=== PATIENT | male | born 1940 | race Two or more races ===

== ENCOUNTER 2016-10-20 22:11 | Inpatient (IN) | payer MEDICARE ==
[~2016-10-20] VITALS: Ht 167.6 cm; Wt 81.0 kg
[~2016-10-20 22:11] MED LIST: ASPI81TA2 PO; ASPI81TA44 PO; ATOR40TA PO; ATOR40TA59 PO; CHOL500016 PO; DOXY100T PO; LISI-334 PO; METO-269 PO; SULF1TAB24 PO
[2016-10-20] MEDS ORDERED: ASPIRIN CHEWABLE 81 MG TABLET. PO ONE (23:00)
[2016-10-20 23:09] LABS: BASO # 0.1 x10^3/uL (0.0-0.2); BASO % 1 % (0-3); EOS % 5 % (0-3); HEMATOCRIT 43.9 % (39.0-53.0); HEMOGLOBIN 14.3 g/dL (13.0-17.5); LYMPH # 0.9 x10^3/uL (1.0-4.8); LYMPH % 13 % (24-48); MEAN CORPUSCULAR HEMOGLOBIN 31 pg (25-35); MEAN CORPUSCULAR HGB CONC 33 g/dL (31-37); MEAN CORPUSCULAR VOLUME 96 fL (79-100); MONO % 7 % (0-9); NEUT % 75 % (31-73); PLATELET COUNT 126 x10^3/uL (140-400); RED CELL DISTRIBUTION WIDTH 14.4 % (11.5-14.5); WHITE BLOOD COUNT 6.8 x10^3/uL (4.0-11.0)
[2016-10-20 23:20] LABS: CALCIUM 9.8 mg/dL (8.5-10.1); CREATININE 1.2 mg/dL (0.7-1.3); GFR 58.9
--- NOTE | 2016-10-20 23:58 | PHYS DOC ---
Past Medical History Past Medical History: High Cholesterol, Hypertension, [place] Past Surgical History: Coronary Bypass Surgery Alcohol Use: None Drug Use: None Adult General Chief Complaint Chief Complaint: SHORTNESS OF BREATH HPI HPI Patient is a 75 year old male who presents with SOB. Patient reports he was walking to get dinner when he had acute onset of SOB. Appears to have exertional component. He denies any SOB while lying on the bed in the ED. No chest discomfort. He did not take anything for symptoms prior to arrival. He has not taken any aspirin today. No other acute complaints. Review of Systems Review of Systems Constitutional: Denies fever or chills Eyes: Denies change in visual acuity or eye pain HENT: Denies nasal congestion or sore throat Respiratory: Shortness of breath with exertion Cardiovascular: Denies chest pain GI: Denies abdominal pain, nausea, vomiting, bloody stools or diarrhea : Denies dysuria or hematuria Musculoskeletal: Denies back pain or joint pain Integument: Denies rash or skin lesions Neurologic: Denies headache, focal weakness or sensory changes Current Medications Current Medications Current Medications Medications (Trade) Dose Ordered Sig/Kael Start Time Stop Time Status Last Admin Dose Admin Aspirin (Children'S Aspirin) 324 mg 1X ONCE 10/20/16 23:00 10/20/16 23:01 DC 10/20/16 23:08 324 MG Allergies Allergies Allergies Coded Allergies Type Severity Reaction Last Updated Verified No Known Drug Allergies 05/24/14 No Physical Exam Physical Exam Constitutional: Well developed, well nourished, no acute distress, non-toxic appearance HENT: Normocephalic, atraumatic, bilateral external ears normal Eyes: EOMI, conjunctiva normal, no discharge Neck: Normal range of motion, no stridor Cardiovascular: Heart rate normal, regular rhythm, no murmur Lungs & Thorax: Bilateral breath sounds clear to auscultation; midline CABG scar c/d/i Abdomen: Bowel sounds normal, soft, non-distended, no TTP Skin: Warm, dry, no erythema, no rash Extremities: No obvious deformity, no edema Neurologic: Alert and oriented X 3, no gross deficits noted Current Patient Data Vital Signs Vital Signs Date Time Temp Pulse Resp B/P Pulse Ox O2 Delivery O2 Flow Rate FiO2 10/20/16 23:36 62 16 123/58 94 Room Air 10/20/16 22:19 98.0 98.0 Lab Values Laboratory Tests Test 10/20/16 23:05 White Blood Count 6.8x10^3/uL (4.0-11.0) Red Blood Count 4.60x10^6/uL (4.30-5.70) Hemoglobin 14.3g/dL (13.0-17.5) Hematocrit 43.9% (39.0-53.0) Mean Corpuscular Volume 96fL (79-100) Mean Corpuscular Hemoglobin 31pg (25-35) Mean Corpuscular Hemoglobin Concent 33g/dL (31-37) Red Cell Distribution Width 14.4% (11.5-14.5) Platelet Count 126x10^3/uL (140-400) L Neutrophils (%) (Auto) 75% (31-73) H Lymphocytes (%) (Auto) 13% (24-48) L Monocytes (%) (Auto) 7% (0-9) Eosinophils (%) (Auto) 5% (0-3) H Basophils (%) (Auto) 1% (0-3) Neutrophils # (Auto) 5.1x10^3uL (1.8-7.7) Lymphocytes # (Auto) 0.9x10^3/uL (1.0-4.8) L Monocytes # (Auto) 0.5x10^3/uL (0.0-1.1) Eosinophils # (Auto) 0.3x10^3/uL (0.0-0.7) Basophils # (Auto) 0.1x10^3/uL (0.0-0.2) Sodium Level 141mmol/L (136-145) Potassium Level 4.0mmol/L (3.5-5.1) Chloride Level 104mmol/L (98-107) Carbon Dioxide Level 28mmol/L (21-32) Anion Gap 9 (6-14) Blood Urea Nitrogen 17mg/dL (8-26) Creatinine 1.2mg/dL (0.7-1.3) Estimated GFR (Cockcroft-Gault) 58.9 Glucose Level 87mg/dL (70-99) Calcium Level 9.8mg/dL (8.5-10.1) Troponin I Quantitative < 0.017ng/mL (0.000-0.055) BD-Idn-P-Type Natriuretic Peptide 225pg/mL (0-449) Laboratory Tests 10/20/16 23:05 Laboratory Tests 10/20/16 23:05 EKG EKG EKG (my read): sinus rhythm, rate 72, LAD, IVCD, similar morphology to prior Radiology/Procedures Radiology/Procedures CXR (my read): No acute abnormality Course & Med Decision Making Course & Med Decision Making Pertinent Labs and Imaging studies reviewed. (See chart for details) Patient is 75-year-old male who presents with shortness of breath with exertion. Concern for anginal equivalent given cardiac history. Will obtain EKG , chest x-ray, labs to evaluate. Dose of aspirin ordered. Blood work unremarkable. EKG similar to prior. Chest x-ray without acute abnormality per my read. Discussed results with patient. Discussed with Dr. Herman, will admit under her care for further evaluation and treatment. Dragon Disclaimer Dragon Disclaimer This electronic medical record was generated, in whole or in part, using a voice recognition dictation system. Departure Departure Impression: Primary Impression: Dyspnea on exertion Disposition: ADMITTED INPATIENT Admitting Physician: Other Condition: STABLE Referrals: BEAR HERMAN MD (PCP) JAMES FREED MD Oct 20, 2016 23:58
[2016-10-21] MEDS ORDERED: ONDANSETRON PF 4 MG/2 ML VIAL. IV PRN (00:15)
[2016-10-21] MEDS ORDERED: MORPHINE SULFATE 2 MG/ML DISP.SYRIN. IV PRN (00:15)
[2016-10-21] MEDS ORDERED: ACETAMINOPHEN 325 MG TABLET. PO PRN (00:15)
[2016-10-21 03:10] VITALS: BP 120/57
[2016-10-21] MEDS ORDERED: PNEUMOCOCCAL VAX SCREEN BY RX. MC ONE (03:30)
[2016-10-21 07:08] VITALS: BP 109/64
--- NOTE | 2016-10-21 07:56 | RAD ---
EXAM: Chest, 2 views. HISTORY: Shortness of breath. COMPARISON: 04/06/2016. FINDINGS: Frontal and lateral views of the chest are obtained. There is no infiltrate, effusion or pneumothorax. There is lingular atelectasis or scarring. There are findings consistent with CABG. There is mild interstitial prominence likely due to slightly decreased lung volumes. IMPRESSION: No acute pulmonary finding.
[2016-10-21] MEDS ORDERED: PNEUMOC CONJ VACC 23-VALENT 0.5 ML VIAL. VAX IM ONE (09:00)
[2016-10-21 09:13] LABS: BILIRUBIN,URINE NEGATIVE (NEG); GLUCOSE,URINE NEGATIVE (NEG); NITRITE,URINE NEGATIVE (NEG); PROTEIN,URINE NEGATIVE (NEG-TRACE)
--- NOTE | 2016-10-21 09:15 | EKG ---
[facility] [address] [place] [address] Test Date: 2016-10-20 Test Time: 23:05:35 Pat Name: ALFIE NIX Department: Room: 1 Gender: M [employer]ist [employer]in Keeper: : 1940 Requested By: JAMES FREED Order Number: [id number] Reading MD: Nora Sweeney Measurements Intervals [place] Rate: 72 P: -33 IL: 172 QRS: -43 QRSD: 132 T: 38 QT: 376 QTc: 413 Interpretive Statements SINUS RHYTHM RIGHT BUNDLE BRANCH BLOCK LEFT ANTERIOR FASCICULAR BLOCK BIFASCICULAR BLOCK RVH WITH REPOLARIZATION ABNORMALITY ABNORMAL ECG Electronically Signed On 10-22-2016 19:06:55 CDT by Nora Sweeney
[2016-10-21 09:31] LABS: BACTERIA,URINE FEW /HPF (0-FEW); RBC,URINE OCC /HPF (0-2); SQUAMOUS EPITHELIAL CELL,UR MOD /LPF; WBC,URINE OCC /HPF (0-4)
[2016-10-21 10:30] VITALS: BP 124/70
--- NOTE | 2016-10-21 13:17 | HP ---
ADMIT DATE: 10/21/2016 HISTORY OF PRESENT ILLNESS: This is a 75-year-old white male who was brought in by his nephew. I talked to the nephew. The nephew stated that he gets shakes at times. The nephew was concerned that the last time he had the shakes in his legs. He had urinary tract infection. This shakes was very bad last night. He has shaking in his arms. He also appeared to be short of breath. He thus brought him to the Emergency Room. This patient is mentally challenged. He lived with his ____ until a few years ago. He now lives with his nephew. He has had open heart surgery, though the nephew does not know any of the details. The patient was admitted here in 10/2015 after having had a syncopal episode. His echocardiogram was unremarkable. An MPI was negative. He was tachycardic, but beta blockers had not been resumed. Once the beta mason was resumed the tachycardia resolved. Since then I have seen him a few times in the office. He normally comes all smiling with a lady ____. I believe she is his niece. He is very pleasant. The family is also very particular about this help status. He is not able to tell me whether he has any urinary symptoms. I do not believe he knows his medications, but they have been listed as: 1. Aspirin 81 mg a day. 2. Atorvastatin 40 mg a day. 3. Metoprolol succinate 50 mg a day. He has seen a urologist. This is because of his frequent urinary tract infection. PHYSICAL EXAMINATION: GENERAL: He is lying flat. He seemed comfortable. He said he was doing all right. VITAL SIGNS: He was afebrile. The heart rate was 80 per minute and regular. The blood pressure is 120/70. LUNGS: Clear. HEART: The heart sounds are normal with no murmur or gallop. LABORATORY DATA: The oxygen saturation was 94% on room air. IMPRESSION: 1. Shaking and shortness of breath, probably due to anxiety, doubt that this is a cardiac or pulmonary cause. 2. Coronary artery disease with no evidence of chest pain and a negative MPI a year ago. 3. Hypertension, under control. 4. History that suggestive of prostatism and frequent urinary tract infection. BEAR HERMAN MD DR: Nicolas JOB#: [id number] / [id number]
[2016-10-21 14:50] VITALS: BP 125/76
[2016-10-21] MEDS: ASPIRIN CHEWABLE 81 MG TABLET. PO SCH (15:15)
[2016-10-21] MEDS: METOPROLOL SUCC 24HR ER 50 MG TAB.ER.24H. PO SCH (15:16)
[2016-10-21 19:15] VITALS: BP 114/71
[2016-10-21] MEDS ORDERED: ATORVASTATIN CALCIUM 20 MG TABLET PO SCH (21:00)
[2016-10-21 23:15] VITALS: BP 115/63
[2016-10-22 03:15] VITALS: BP 145/73
[2016-10-22] MEDS ORDERED: ACETAMINOPHEN 325 MG TABLET. PO PRN (04:00)
[2016-10-22 07:08] VITALS: BP 132/78
[2016-10-22] MEDS: METOPROLOL SUCC 24HR ER 50 MG TAB.ER.24H. PO SCH (09:04)
[2016-10-22] MEDS: ASPIRIN CHEWABLE 81 MG TABLET. PO SCH (09:05)
[2016-10-22 10:59] VITALS: BP 102/70
--- NOTE | 2016-10-22 15:06 | PDOC ---
PROGRESS NOTES Subjective Subjective Covering for Dr. Sweeney Patient is feeling fine and wants to go home. No new complaints. Objective Objective Vital Signs Date Time Temp Pulse Resp B/P Pulse Ox O2 Delivery O2 Flow Rate FiO2 10/22/16 10:59 97.9 74 18 102/70 94 Room Air 97.9 Intake and Output 10/22/16 06:59 Intake Total 620 ml Balance 620 ml Intake Oral 620 ml # Voids 10 Physical Exam Physical Exam No significant changes in cardiac exam. Assessment Assessment Patient appears to be stable. May go home to follow-up as an outpatient with Dr. Sweeney. Problems Medical Problems: (1) Dyspnea on exertion Status: Acute Comment Review of Relevant I have reviewed the following items dulce (where applicable) has been applied. Labs Laboratory Tests Test 10/20/16 23:05 10/21/16 06:05 10/21/16 09:00 10/21/16 11:45 White Blood Count 6.8x10^3/uL (4.0-11.0) Red Blood Count 4.60x10^6/uL (4.30-5.70) Hemoglobin 14.3g/dL (13.0-17.5) Hematocrit 43.9% (39.0-53.0) Mean Corpuscular Volume 96fL (79-100) Mean Corpuscular Hemoglobin 31pg (25-35) Mean Corpuscular Hemoglobin Concent 33g/dL (31-37) Red Cell Distribution Width 14.4% (11.5-14.5) Platelet Count 126x10^3/uL (140-400) Neutrophils (%) (Auto) 75% (31-73) Lymphocytes (%) (Auto) 13% (24-48) Monocytes (%) (Auto) 7% (0-9) Eosinophils (%) (Auto) 5% (0-3) Basophils (%) (Auto) 1% (0-3) Neutrophils # (Auto) 5.1x10^3uL (1.8-7.7) Lymphocytes # (Auto) 0.9x10^3/uL (1.0-4.8) Monocytes # (Auto) 0.5x10^3/uL (0.0-1.1) Eosinophils # (Auto) 0.3x10^3/uL (0.0-0.7) Basophils # (Auto) 0.1x10^3/uL (0.0-0.2) Sodium Level 141mmol/L (136-145) Potassium Level 4.0mmol/L (3.5-5.1) Chloride Level 104mmol/L (98-107) Carbon Dioxide Level 28mmol/L (21-32) Anion Gap 9 (6-14) Blood Urea Nitrogen 17mg/dL (8-26) Creatinine 1.2mg/dL (0.7-1.3) Estimated GFR (Cockcroft-Gault) 58.9 Glucose Level 87mg/dL (70-99) Calcium Level 9.8mg/dL (8.5-10.1) Troponin I Quantitative < 0.017ng/mL (0.000-0.055) < 0.017ng/mL (0.000-0.055) < 0.017ng/mL (0.000-0.055) CW-Cze-E-Type Natriuretic Peptide 225pg/mL (0-449) Urine Collection Type Unknown Urine Color Yellow Urine Clarity Clear Urine pH 6.0 Urine Specific [place] 1.025 Urine Protein Negativemg/dL (NEG-TRACE) Urine Glucose (UA) Negativemg/dL (NEG) Urine Ketones (Stick) Negativemg/dL (NEG) Urine Blood Negative (NEG) Urine Nitrite Negative (NEG) Urine Bilirubin Negative (NEG) Urine Urobilinogen Dipstick 1.0mg/dL (0.2 mg/dL) Urine Leukocyte Esterase Negative (NEG) Urine RBC Occ/HPF (0-2) Urine WBC Occ/HPF (0-4) Urine Squamous Epithelial Cells Mod/LPF Urine Bacteria Few/HPF (0-FEW) Urine Mucus Marked/LPF Medications Current Medications Aspirin (Children'S Aspirin) 324 mg 1X ONCE PO Last administered on 10/20/16t 23:08; Start 10/20/16 at 23:00; Stop 10/20/16 at 23:01; Status DC Ondansetron HCl (Zofran) 4 mg PRN Q8HRS PRN IV NAUSEA/VOMITING; Start 10/21/16 at 00:15; Stop 10/22/16 at 00:14; Status DC Morphine Sulfate 2 mg PRN Q2HR PRN IV SEVERE PAIN; Start 10/21/16 at 00:15; Stop 10/22/16 at 00:14; Status DC Acetaminophen (Tylenol) 650 mg PRN Q4HRS PRN PO FEVER; Start 10/21/16 at 00:15; Stop 10/22/16 at 00:14; Status DC Pneumococcal Polyvalent Vaccine (Do NOT chart on this placeholder) 1 each 1X ONCE MC ; Start 10/21/16 at 03:30; Stop 10/21/16 at 03:31; Status UNV Pneumococcal Polyvalent Vaccine (Pneumovax 23) 0.5 ml ONCE ONCE VAX IM Last administered on 10/21/16 17:56; Start 10/21/16 at 09:00; Stop 10/21/16 at 09:01; Status DC Aspirin (Children'S Aspirin) 81 mg DAILYWBKFT PO Last administered on 10/22/16 09:05; Start 10/21/16 at 14:00 Atorvastatin Calcium (Lipitor) 20 mg QHS PO Last administered on 10/21/16 21:41 ; Start 10/21/16 at 21:00 Metoprolol Succinate (Toprol Xl) 50 mg DAILY PO Last administered on 10/22/16 09:04; Start 10/21/16 at 14:00 Acetaminophen (Tylenol) 650 mg PRN Q6HRS PRN PO MILD PAIN Last administered on 10/22/16 04:18; Start 10/22/16 at 04:00 Active Scripts Active Bactrim Ds Tablet (Sulfamethoxazole/Trimethoprim) 1 Each Tablet 1 Tab PO BID Bactrim Ds Tablet (Sulfamethoxazole/Trimethoprim) 1 Each Tablet 1 Tab PO BID Vitamin D3 (Cholecalciferol (Vitamin D3)) 5,000 Unit Tablet 1 Tab PO DAILY Reported Toprol Xl (Metoprolol Succinate) 50 Mg Tab.er.24h 50 Mg PO DAILY Aspirin 81 Mg Tab.chew 81 Mg PO DAILY Lipitor (Atorvastatin Calcium) 40 Mg Tablet 40 Mg PO DAILY [unknown] Children's Aspirin (Aspirin) 81 Mg Tab.chew 81 Mg PO Toprol Xl (Metoprolol Succinate) 50 Mg Tab.er.24h 1 Tab PO DAILY Atorvastatin Calcium 40 Mg Tablet 1 Tab PO DAILY Vitals/I & O Vital Sign - Last 24 Hours 10/21/16 10/21/16 10/21/16 10/21/16 15:16 19:15 20:00 23:15 Temp 98.0 98.5 98.0 98.5 Pulse 80 71 68 Resp 18 14 B/P 125/76 114/71 115/63 Pulse Ox 94 97 O2 Delivery Room Air Room Air Room Air 10/22/16 10/22/16 10/22/16 10/22/16 03:15 07:08 08:00 09:04 Temp 98.3 98.2 98.3 98.2 Pulse 70 71 71 Resp 14 19 B/P 145/73 132/78 132/78 Pulse Ox 95 96 O2 Delivery Room Air Room Air Room Air 10/22/16 10:59 Temp 97.9 97.9 Pulse 74 Resp 18 B/P 102/70 Pulse Ox 94 O2 Delivery Room Air Intake and Output 10/21/16 10/21/16 10/22/16 14:59 22:59 06:59 Intake Total 300 ml 320 ml Balance 300 ml 320 ml KELVIN LAWRENCE MD Oct 22, 2016 15:06
[2016-10-22 15:35] VITALS: BP 146/72
[2016-10-22] MEDS ORDERED: ALPRAZOLAM 0.25 MG TABLET. PO STA (16:21)
== END 2016-10-22 16:45 | disposition home or self-care (01) | DRG 880 ==
LOC: ER 22:11 → 6 SOUTH 10-21 00:01
PROVIDERS: ADMIT Specialist; ATTEND Specialist
DX: F41.9 Anxiety disorder, unspecified (principal); E78.00 Pure hypercholesterolemia, unspecified; I10 Essential (primary) hypertension; I25.10 Atherosclerotic heart disease of native coronary artery without angina pectoris; I25.2 Old myocardial infarction; Z79.82 Long term (current) use of aspirin; Z79.899 Other long term (current) drug therapy; Z95.1 Presence of aortocoronary bypass graft
CPT/HCPCS: 36415; 71020; 80048; 81001; 83880; 84484; 85027; 87086; 90732; 93005; 94620; 97110; 97116; 99285-25

== ENCOUNTER 2017-10-06 04:03 | Emergency (ER) | payer MEDICARE ==
[2017-10-06 04:39] LABS: ADD MAN DIFF? NO
[2017-10-06 04:43] LABS: BASO % 1 % (0-3); EOS # 0.1 x10^3/uL (0.0-0.7); EOS % 1 % (0-3); HEMATOCRIT 42.9 % (39.0-53.0); HEMOGLOBIN 14.2 g/dL (13.0-17.5); LYMPH # 1.7 x10^3/uL (1.0-4.8); LYMPH % 19 % (24-48); MEAN CORPUSCULAR HEMOGLOBIN 32 pg (25-35); MEAN CORPUSCULAR HGB CONC 33 g/dL (31-37); MEAN CORPUSCULAR VOLUME 96 fL (79-100); MONO # 0.7 x10^3/uL (0.0-1.1); MONO % 8 % (0-9); NEUT # 6.2 x10^3uL (1.8-7.7); NEUT % 71 % (31-73); PLATELET COUNT 137 x10^3/uL (140-400); RED BLOOD COUNT 4.45 x10^6/uL (4.30-5.70); RED CELL DISTRIBUTION WIDTH 14.3 % (11.5-14.5); WHITE BLOOD COUNT 8.7 x10^3/uL (4.0-11.0)
[2017-10-06 04:45] LABS: BILIRUBIN,URINE NEGATIVE (NEG); CLARITY,URINE CLEAR; COLOR,URINE YELLOW; GLUCOSE,URINE NEGATIVE (NEG); NITRITE,URINE NEGATIVE (NEG); PROTEIN,URINE 100 mg/dL (NEG-TRACE)
[2017-10-06 04:51] LABS: ANION GAP 9 (6-14); BLOOD UREA NITROGEN 17 mg/dL (8-26); BUN/CREATININE RATIO 14 (6-20); CALCIUM 10.6 mg/dL (8.5-10.1); CARBON DIOXIDE 27 mmol/L (21-32); CHLORIDE 106 mmol/L (98-107); CREATININE 1.2 mg/dL (0.7-1.3); GFR 58.7; GLUCOSE 108 mg/dL (70-99); POTASSIUM 3.9 mmol/L (3.5-5.1); SODIUM 142 mmol/L (136-145)
[2017-10-06 04:55] LABS: BACTERIA,URINE MODERATE /HPF (0-FEW); RBC,URINE 0 /HPF (0-2); SQUAMOUS EPITHELIAL CELL,UR FEW /LPF
[2017-10-06 04:57] LABS: ALBUMIN 3.3 g/dL (3.4-5.0); ALBUMIN/GLOBULIN RATIO 0.9 (1.0-1.7); ALK PHOS 140 U/L (46-116); ALT (SGPT) 81 U/L (16-63); AST (SGOT) 111 U/L (15-37); LIPASE 58 U/L (73-393); TOTAL BILIRUBIN 0.4 mg/dL (0.2-1.0); TOTAL PROTEIN 6.9 g/dL (6.4-8.2)
== END 2017-10-06 06:55 | disposition home or self-care (01) ==
LOC: ER 04:03
DX: S09.90XA Unspecified injury of head, initial encounter (principal); N39.0 Urinary tract infection, site not specified; E78.00 Pure hypercholesterolemia, unspecified; I10 Essential (primary) hypertension; I25.2 Old myocardial infarction; Z95.1 Presence of aortocoronary bypass graft; W01.198A Fall on same level from slipping, tripping and stumbling with subsequent striking against other object, initial encounter; Y93.89 Activity, other specified; Y92.89 Other specified places as the place of occurrence of the external cause; Y99.8 Other external cause status
CPT/HCPCS: 36415; 70450; 72125; 80053; 81001; 83690; 85025; 87086; 96365; 99285-25; J0690

== ENCOUNTER 2017-10-19 20:50 | Inpatient (IN) | payer MEDICARE ==
[2017-10-19] MEDS ORDERED: MIDAZOLAM HCL/PF 5 MG/5 ML VIAL. (20:59)
[2017-10-19] MEDS: MIDAZOLAM HCL/PF 5 MG/5 ML VIAL. IV (21:00)
[2017-10-19 21:15] LABS: ADD MAN DIFF? NO
[2017-10-19 21:18] LABS: BASO % 1 % (0-3); EOS # 0.2 x10^3/uL (0.0-0.7); EOS % 3 % (0-3); HEMOGLOBIN 13.5 g/dL (13.0-17.5); LYMPH # 3.7 x10^3/uL (1.0-4.8); LYMPH % 46 % (24-48); MEAN CORPUSCULAR HEMOGLOBIN 32 pg (25-35); MEAN CORPUSCULAR HGB CONC 33 g/dL (31-37); MEAN CORPUSCULAR VOLUME 99 fL (79-100); MONO # 0.6 x10^3/uL (0.0-1.1); MONO % 8 % (0-9); NEUT # 3.5 x10^3uL (1.8-7.7); NEUT % 43 % (31-73); PLATELET COUNT 110 x10^3/uL (140-400); RED BLOOD COUNT 4.16 x10^6/uL (4.30-5.70); RED CELL DISTRIBUTION WIDTH 14.9 % (11.5-14.5); WHITE BLOOD COUNT 8.2 x10^3/uL (4.0-11.0)
[2017-10-19 21:31] LABS: ANION GAP 12 (6-14); BLOOD UREA NITROGEN 23 mg/dL (8-26); BUN/CREATININE RATIO 18 (6-20); CALCIUM 9.5 mg/dL (8.5-10.1); CARBON DIOXIDE 21 mmol/L (21-32); CHLORIDE 108 mmol/L (98-107); CREATININE 1.3 mg/dL (0.7-1.3); GFR 53.5; GLUCOSE 181 mg/dL (70-99); POTASSIUM 4.2 mmol/L (3.5-5.1); SODIUM 141 mmol/L (136-145)
[2017-10-19 21:36] LABS: ALBUMIN 3.1 g/dL (3.4-5.0); ALK PHOS 152 U/L (46-116); ALT (SGPT) 107 U/L (16-63); AST (SGOT) 138 U/L (15-37); LIPASE 71 U/L (73-393); TOTAL BILIRUBIN 0.4 mg/dL (0.2-1.0); TOTAL PROTEIN 6.3 g/dL (6.4-8.2)
[2017-10-19 21:38] LABS: TROPONINI < 0.017 ng/mL (0.000-0.055)
[2017-10-19 21:41] LABS: NT-PRO BNP 394 pg/mL (0-449)
[2017-10-19 21:57] LABS: MAGNESIUM 2.1 mg/dL (1.8-2.4)
[2017-10-19 22:12] LABS: PARTIAL THROMBOPLASTIN TIME 31 SEC (24-38); PROTHROMBIN TIME PATIENT 13.1 SEC (11.7-14.0)
[2017-10-19] MEDS ORDERED: ACETAMINOPHEN 325 MG TABLET. PO (23:15)
[2017-10-19] MEDS ORDERED: fentaNYL PF VIAL 100 MCG/2 ML VIAL IV (23:15)
[2017-10-19] MEDS ORDERED: ONDANSETRON PF 4 MG/2 ML VIAL. IV (23:15)
[2017-10-20 03:03] LABS: TROPONINI < 0.017 ng/mL (0.000-0.055)
[2017-10-20 08:34] LABS: ADD MAN DIFF? NO
[2017-10-20 08:37] LABS: BASO % 0 % (0-3); EOS # 0.1 x10^3/uL (0.0-0.7); EOS % 1 % (0-3); HEMATOCRIT 40.7 % (39.0-53.0); HEMOGLOBIN 13.3 g/dL (13.0-17.5); LYMPH # 1.3 x10^3/uL (1.0-4.8); LYMPH % 16 % (24-48); MEAN CORPUSCULAR HEMOGLOBIN 32 pg (25-35); MEAN CORPUSCULAR HGB CONC 33 g/dL (31-37); MEAN CORPUSCULAR VOLUME 97 fL (79-100); MONO # 0.6 x10^3/uL (0.0-1.1); MONO % 7 % (0-9); NEUT # 6.2 x10^3uL (1.8-7.7); NEUT % 76 % (31-73); PLATELET COUNT 106 x10^3/uL (140-400); RED CELL DISTRIBUTION WIDTH 14.6 % (11.5-14.5); WHITE BLOOD COUNT 8.2 x10^3/uL (4.0-11.0)
[2017-10-20 09:05] LABS: ALBUMIN 3.2 g/dL (3.4-5.0); ALBUMIN/GLOBULIN RATIO 1.1 (1.0-1.7); ALK PHOS 141 U/L (46-116); ALT (SGPT) 103 U/L (16-63); ANION GAP 6 (6-14); AST (SGOT) 69 U/L (15-37); BLOOD UREA NITROGEN 17 mg/dL (8-26); BUN/CREATININE RATIO 17 (6-20); CALCIUM 9.7 mg/dL (8.5-10.1); CARBON DIOXIDE 28 mmol/L (21-32); CHLORIDE 108 mmol/L (98-107); GFR 72.5; GLUCOSE 104 mg/dL (70-99); POTASSIUM 4.2 mmol/L (3.5-5.1); SODIUM 142 mmol/L (136-145); TOTAL BILIRUBIN 0.6 mg/dL (0.2-1.0); TOTAL PROTEIN 6.1 g/dL (6.4-8.2)
[2017-10-20 09:14] LABS: TROPONINI 0.026 ng/mL (0.000-0.055)
[2017-10-20 18:18] LABS: MRSA BY PCR Negative (Negative)
[2017-10-21] MEDS: LOSARTAN POTASSIUM 50 MG TABLET. PO (09:28)
[2017-10-21] MEDS: IV 1/2 NORMAL SALINE 1,000 ML IV ×2 (09:28→17:00)
[2017-10-21] MEDS ORDERED: ONDANSETRON PF 4 MG/2 ML VIAL. (14:40)
[2017-10-21] MEDS: ONDANSETRON PF 4 MG/2 ML VIAL. IV (14:51)
[2017-10-21] MEDS ORDERED: NOREPINEPHRIN PREMIX 250 ML IV (16:00)
[2017-10-21] MEDS: ATORVASTATIN CALCIUM 40 MG TABLET. PO (21:41)
[2017-10-22] MEDS: PARoxetine 20 MG TABLET PO (10:23)
[2017-10-22] MEDS: TAMSULOSIN 0.4 MG CAP.ER.24H. PO (10:23)
[2017-10-22] MEDS: LOSARTAN POTASSIUM 50 MG TABLET. PO (10:24)
[2017-10-22] MEDS ORDERED: MIDAZOLAM HCL/PF 5 MG/5 ML VIAL. (14:22)
[2017-10-22] MEDS ORDERED: fentaNYL PF VIAL 250 MCG/5 ML VIAL (14:22)
[2017-10-22] MEDS ORDERED: LIDOCAINE 2%/EPI 1:100,000 20 ML VIAL. (14:30)
[2017-10-22] MEDS: MIDAZOLAM HCL/PF 5 MG/5 ML VIAL. IV (14:37)
[2017-10-22] MEDS: fentaNYL PF VIAL 250 MCG/5 ML VIAL IV (14:37)
[2017-10-22] MEDS: LIDOCAINE 2%/EPI 1:100,000 20 ML VIAL. IJ (14:43)
[2017-10-22] MEDS: BACITRACIN 50,000 UNIT in IV NORMAL SALINE 250ML 250 ML IRR (15:00)
[2017-10-22] MEDS: IV NORMAL SALINE 500ML BAG 500 ML IV (15:30)
[2017-10-22] MEDS: ALBUMIN HUMAN 5% 500 ML IV (16:54)
[2017-10-22] MEDS ORDERED: HYDROcodone/APAP 5/325MG 1 TAB TABLET PO (19:30)
[2017-10-22] MEDS: ATORVASTATIN CALCIUM 40 MG TABLET. PO (21:37)
[2017-10-23] MEDS: PARoxetine 20 MG TABLET PO (09:06)
[2017-10-23] MEDS: TAMSULOSIN 0.4 MG CAP.ER.24H. PO (09:06)
[2017-10-23] MEDS: LOSARTAN POTASSIUM 50 MG TABLET. PO (09:06)
[2017-10-23] MEDS: ATORVASTATIN CALCIUM 40 MG TABLET. PO (19:49)
[2017-10-24] MEDS: TAMSULOSIN 0.4 MG CAP.ER.24H. PO (08:54)
[2017-10-24] MEDS: PARoxetine 20 MG TABLET PO (08:54)
[2017-10-24] MEDS: LOSARTAN POTASSIUM 50 MG TABLET. PO (09:00)
== END 2017-10-24 15:39 | disposition home health service (06) | DRG 242 ==
LOC: ER 20:50 → 1 WEST ICU 22:43 → 2 SOUTH 10-22 18:23
PROC: 0JH606Z Insertion of Pacemaker, Dual Chamber into Chest Subcutaneous Tissue and Fascia, Open Approach (ICD-10-PCS; principal; 2017-10-22)
PROC: 02H63JZ Insertion of Pacemaker Lead into Right Atrium, Percutaneous Approach (ICD-10-PCS; 2017-10-22)
PROC: 02HK3JZ Insertion of Pacemaker Lead into Right Ventricle, Percutaneous Approach (ICD-10-PCS; 2017-10-22)
DX: I44.2 Atrioventricular block, complete (principal); N17.0 Acute kidney failure with tubular necrosis; E78.5 Hyperlipidemia, unspecified; I10 Essential (primary) hypertension; M19.90 Unspecified osteoarthritis, unspecified site; I25.10 Atherosclerotic heart disease of native coronary artery without angina pectoris; I25.2 Old myocardial infarction; Z82.49 Family history of ischemic heart disease and other diseases of the circulatory system; Z95.1 Presence of aortocoronary bypass graft
CPT/HCPCS: 33217; 36415; 71045; 71046; 80053; 83690; 83735; 83880; 84484; 85025; 85610; 85730; 87641; 93005; 96365; 96366; 96375; 97110-GP; 97116-GP; 97162-GP; 97166-GO; 97530-GO; 97535-GO; 99152; 99153; 99291; 99291-25; C1785; C1898; J0690; J1265; J2250; J2405; J3010; J3490; J7040; J7050; P9045

== ENCOUNTER 2018-03-09 12:30 | Emergency (ER) | payer MEDICARE ==
[~2018-03-09] VITALS: Ht 167.6 cm; Wt 79.8 kg
[~2018-03-09 12:30] MED LIST changes: +AMOX1TAB61 PO; +ASPI-630 PO; -ASPI81TA2 PO; -ASPI81TA44 PO; +ASPI81TA59 PO; +CEPH-264 PO; +LACT1CAP19 PO; +LORA0.5T PO; +LOSA25TA4 PO; +NITR0.4T22 SL; +PARO20TA3 PO; +TAMS0.4C2 PO
[2018-03-09 14:00] LABS: BASO % 1 % (0-3); EOS # 0.2 x10^3/uL (0.0-0.7); EOS % 4 % (0-3); HEMATOCRIT 37.3 % (39.0-53.0); HEMOGLOBIN 12.5 g/dL (13.0-17.5); LYMPH # 1.8 x10^3/uL (1.0-4.8); LYMPH % 29 % (24-48); MEAN CORPUSCULAR HEMOGLOBIN 32 pg (25-35); MEAN CORPUSCULAR HGB CONC 33 g/dL (31-37); MEAN CORPUSCULAR VOLUME 97 fL (79-100); MONO # 0.6 x10^3/uL (0.0-1.1); MONO % 9 % (0-9); NEUT # 3.6 x10^3uL (1.8-7.7); NEUT % 58 % (31-73); PLATELET COUNT 109 x10^3/uL (140-400); RED BLOOD COUNT 3.87 x10^6/uL (4.30-5.70); RED CELL DISTRIBUTION WIDTH 15.8 % (11.5-14.5); WHITE BLOOD COUNT 6.2 x10^3/uL (4.0-11.0)
[2018-03-09 14:05] LABS: CALCIUM 9.5 mg/dL (8.5-10.1); CREATININE 1.2 mg/dL (0.7-1.3); GFR 58.6; POTASSIUM 4.1 mmol/L (3.5-5.1)
[2018-03-09 14:11] LABS: ALBUMIN 3.1 g/dL (3.4-5.0); DIRECT BILIRUBIN 0.1 mg/dL (0.0-0.2); TOTAL BILIRUBIN 0.5 mg/dL (0.2-1.0); TOTAL PROTEIN 6.1 g/dL (6.4-8.2)
[2018-03-09] MEDS ORDERED: CONTRAST GIVEN. MC PRN (14:15)
[2018-03-09] MEDS ORDERED: IOHEXOL 300 MG/ML 100ML VIAL. IV ONE (14:30)
--- NOTE | 2018-03-09 14:55 | PHYS DOC ---
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 Past Surgical History: Coronary Bypass Surgery, Pacemaker Alcohol Use: None Drug Use: None Adult General Chief Complaint Chief Complaint: ABDOMINAL PAIN HPI HPI Patient is a 77 year old male who presents with abdominal pain. The patient was at baseline health until yesterday morning. He describes that he had gradual onset of pain over the middle and left lower quadrant of his abdomen. The pain is been remittent since that time. He describes it to be a pressure or squeezing sensation. He has not had any fever, chills, nausea, vomiting. He has been having normal bowel movements. He denies any prior history of similar pain. He has never had surgery on his abdomen in the past. Review of Systems Review of Systems Constitutional: Denies fever or chills Eyes: Denies change in visual acuity HENT: Denies nasal congestion Respiratory: Denies cough Cardiovascular: No additional information not addressed in HPI GI: Denies abdominal pain, nausea, vomiting, bloody stools : Denies dysuria or hematuria Musculoskeletal: Denies back pain or joint pain Integument: Denies rash or skin lesions Neurologic: Denies headache All other systems were reviewed and found to be within normal limits, except as documented in this note. Current Medications Current Medications Current Medications Medications (Trade) Dose Ordered Sig/Kael Start Time Stop Time Status Last Admin Dose Admin Info (CONTRAST GIVEN -- Rx MONITORING) 1 each PRN DAILY PRN 03/09/18 14:15 03/11/18 14:14 Iohexol (Omnipaque 300 Mg/ml) 75 ml 1X ONCE 03/09/18 14:30 03/09/18 14:31 DC 03/09/18 14:30 75 ML Morphine Sulfate (Morphine Sulfate) 4 mg 1X ONCE 03/09/18 16:00 03/09/18 16:01 DC 03/09/18 15:44 4 MG Allergies Allergies Allergies Coded Allergies Type Severity Reaction Last Updated Verified No Known Drug Allergies 05/24/14 No Physical Exam Physical Exam Constitutional: Well developed, well nourished, no acute distress HENT: Normocephalic, atraumatic, bilateral external ears normal, oropharynx moist Eyes: PERRLA, EOMI, conjunctiva normal Neck: Normal range of motion, no tenderness Cardiovascular:Heart rate regular rhythm, no murmur Lungs & Thorax: Bilateral breath sounds clear to auscultation Abdomen: Bowel sounds normal, soft, mildly TTP over LLQ but no guarding or rebound Skin: Warm, dry, no erythema, no rash. Extremities: No tenderness, no edema Neurologic: Alert and oriented X 3 Psychologic: Affect normal Current Patient Data Vital Signs Vital Signs Date Time Temp Pulse Resp B/P (MAP) Pulse Ox O2 Delivery O2 Flow Rate FiO2 03/09/18 15:44 Room Air 03/09/18 15:30 60 20 165/81 (109) 96 03/09/18 12:55 97.7 97.7 Lab Values Laboratory Tests Test 03/09/18 13:25 03/09/18 15:00 White Blood Count 6.2 x10^3/uL (4.0-11.0) Red Blood Count 3.87 x10^6/uL (4.30-5.70) L Hemoglobin 12.5 g/dL (13.0-17.5) L Hematocrit 37.3 % (39.0-53.0) L Mean Corpuscular Volume 97 fL (79-100) Mean Corpuscular Hemoglobin 32 pg (25-35) Mean Corpuscular Hemoglobin Concent 33 g/dL (31-37) Red Cell Distribution Width 15.8 % (11.5-14.5) H Platelet Count 109 x10^3/uL (140-400) L Neutrophils (%) (Auto) 58 % (31-73) Lymphocytes (%) (Auto) 29 % (24-48) Monocytes (%) (Auto) 9 % (0-9) Eosinophils (%) (Auto) 4 % (0-3) H Basophils (%) (Auto) 1 % (0-3) Neutrophils # (Auto) 3.6 x10^3uL (1.8-7.7) Lymphocytes # (Auto) 1.8 x10^3/uL (1.0-4.8) Monocytes # (Auto) 0.6 x10^3/uL (0.0-1.1) Eosinophils # (Auto) 0.2 x10^3/uL (0.0-0.7) Basophils # (Auto) 0.0 x10^3/uL (0.0-0.2) Sodium Level 141 mmol/L (136-145) Potassium Level 4.1 mmol/L (3.5-5.1) Chloride Level 108 mmol/L (98-107) H Carbon Dioxide Level 29 mmol/L (21-32) Anion Gap 4 (6-14) L Blood Urea Nitrogen 13 mg/dL (8-26) Creatinine 1.2 mg/dL (0.7-1.3) Estimated GFR (Cockcroft-Gault) 58.6 Glucose Level 102 mg/dL (70-99) H Calcium Level 9.5 mg/dL (8.5-10.1) Total Bilirubin 0.5 mg/dL (0.2-1.0) Direct Bilirubin 0.1 mg/dL (0.0-0.2) Aspartate Amino Transferase (AST) 15 U/L (15-37) Alanine Aminotransferase (ALT) 18 U/L (16-63) Alkaline Phosphatase 131 U/L (46-116) H Troponin I Quantitative < 0.017 ng/mL (0.000-0.055) Total Protein 6.1 g/dL (6.4-8.2) L Albumin 3.1 g/dL (3.4-5.0) L Lipase 57 U/L (73-393) L Urine Collection Type Unknown Urine Color Yellow Urine Clarity Clear Urine pH 6.0 Urine Specific [place] 1.010 Urine Protein Negative mg/dL (NEG-TRACE) Urine Glucose (UA) Negative mg/dL (NEG) Urine Ketones (Stick) Negative mg/dL (NEG) Urine Blood Negative (NEG) Urine Nitrite Negative (NEG) Urine Bilirubin Negative (NEG) Urine Urobilinogen Dipstick 0.2 mg/dL (0.2 mg/dL) Urine Leukocyte Esterase Negative (NEG) Urine RBC 0 /HPF (0-2) Urine WBC 0 /HPF (0-4) Urine Squamous Epithelial Cells Few /LPF Urine Bacteria 0 /HPF (0-FEW) Laboratory Tests 03/09/18 13:25 Laboratory Tests 03/09/18 13:25 EKG EKG [] Radiology/Procedures Radiology/Procedures Ct abd pelvis: diverticulosis without diverticulitis. no additional acute findings. Course & Med Decision Making Course & Med Decision Making Pertinent Labs and Imaging studies reviewed. (See chart for details) Patient is seen and examined in the emergency department. His examination is overall benign. He does have very mild subjective tenderness to palpate on the abdominal exam. Plan is to do standard abdominal pain workup to rule out colitis or diverticulitis. 16:05: All results are reviewed and discussed with the patient. There were no acute findings on his workup today to explain his pain symptoms. His abdominal exam continues to be benign. Plan is for discharge home. Patient is advised to return to the ER immediately if his symptoms worsen or if he develops new symptoms. Otherwise he is encouraged to follow-up with his primary care doctor. Dragon Disclaimer Dragon Disclaimer This electronic medical record was generated, in whole or in part, using a voice recognition dictation system. Departure Departure Referrals: BEAR HERMAN MD (PCP) KIMBERLI JOHNSON DO Mar 09, 2018 14:55
[2018-03-09 15:12] LABS: BILIRUBIN,URINE NEGATIVE (NEG); CLARITY,URINE CLEAR; COLOR,URINE YELLOW; NITRITE,URINE NEGATIVE (NEG); PROTEIN,URINE NEGATIVE (NEG-TRACE); UROBILINOGEN,URINE 0.2 mg/dL (0.2 mg/dL)
[2018-03-09 15:19] LABS: BACTERIA,URINE 0 /HPF (0-FEW); RBC,URINE 0 /HPF (0-2); SQUAMOUS EPITHELIAL CELL,UR FEW /LPF; WBC,URINE 0 /HPF (0-4)
--- NOTE | 2018-03-09 15:27 | RAD ---
CT study of the abdomen and pelvis with contrast Clinical indications: Lower abdominal pain. TECHNIQUE: After IV infusion of 75 cc of Omnipaque 300, helical CT scanning of the abdomen and pelvis was performed. PQRS compliance Statement One or more of the following individualized dose reduction techniques were utilized for this study: 1. Automated exposure control 2. Adjustment of the mA and/or kV according to patient size 3. Use of iterative reconstruction technique COMPARISON: November 07, 2015. FINDINGS: The liver and spleen are unremarkable. Fatty atrophy of the pancreas is seen. Gallbladder is normal. No extra hepatic biliary ductal dilatation is seen. No adrenal mass is evident. Both kidneys are normal without hydronephrosis or hydroureter. Urinary bladder wall is smooth. No focal aneurysmal dilatation of the abdominal aorta is seen. No enlarged abdominal or pelvic lymphadenopathy is seen. The appendix is normal. No obstructive bowel pattern is evident. Colonic diverticulosis is seen without diverticulitis. A small hiatal hernia is evident. No free air or free fluid or mesenteric edema is seen. Small right-sided pleural effusion is seen. Mild right lung base atelectasis present. IMPRESSION: Colonic diverticulosis without diverticulitis. Small right pleural effusion. Electronically signed by: Contreras Peralta MD (03/09/2018 3:23 PM) [facility] [place]
[2018-03-09 15:30] VITALS: BP 165/81
[2018-03-09] MEDS ORDERED: MORPHINE SULFATE 4 MG/ML VIAL. IV ONE (16:00)
== END 2018-03-09 16:21 | disposition home or self-care (01) ==
LOC: ER 12:30
DX: K57.90 Diverticulosis of intestine, part unspecified, without perforation or abscess without bleeding (principal); E78.00 Pure hypercholesterolemia, unspecified; I10 Essential (primary) hypertension; I25.2 Old myocardial infarction; Z87.440 Personal history of urinary (tract) infections; Z95.0 Presence of cardiac pacemaker; Z95.5 Presence of coronary angioplasty implant and graft
CPT/HCPCS: 36415; 74177; 80048; 80076; 81001; 83690; 84484; 85025; 96374; 99285; J2270; Q9967

== ENCOUNTER 2018-06-08 20:04 | Emergency (ER) | payer MEDICARE ==
[~2018-06-08] VITALS: Ht 162.6 cm; Wt 79.8 kg
[~2018-06-08 20:04] MED LIST changes: -LOSA25TA4 PO; +LOSA25TA5 PO
--- NOTE | 2018-06-08 20:40 | PHYS DOC ---
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 Past Surgical History: Coronary Bypass Surgery, Pacemaker Past Surgical History CABG (1970s) Alcohol Use: None Drug Use: None Adult General Chief Complaint Chief Complaint: Dizziness HPI HPI This is a 77-year-old male presenting to the ED via EMS complaining of dizziness that occurs when standing from a seated position. Patient ascribes the dizziness as a spinning sensation, patient does not have any symptoms when seated or laying down. Denies syncope, recent falls, chest pain, shortness of breath, headache. Patient also states he experienced dysuria yesterday which has since resolved. Review of Systems Review of Systems Constitutional: Denies fever or chills [] Eyes: Denies change in visual acuity, redness, or eye pain [] HENT: Denies nasal congestion or sore throat [] Respiratory: Denies cough or shortness of breath [] Cardiovascular: Denies chest pain GI: Denies abdominal pain, nausea, vomiting, bloody stools or diarrhea [] : Reports dysuria yesterday; Denies hematuria or current dysuria Musculoskeletal: Denies back pain or joint pain [] Integument: Reports purpuric rash on lower extremities[] Neurologic: Reports postural dizziness, vertigo. Denies syncope, headache, focal weakness or sensory changes [] Complete systems were reviewed and found to be within normal limits, except as documented in this note. Current Medications Current Medications Current Medications Medications (Trade) Dose Ordered Sig/Kael Start Time Stop Time Status Last Admin Dose Admin Fluconazole (Diflucan) 200 mg 1X ONCE 06/08/18 21:45 06/08/18 21:46 DC 06/08/18 21:59 200 MG Sodium Chloride 1,000 ml @ 1,000 mls/hr 1X ONCE 06/08/18 20:45 06/08/18 21:44 DC 06/08/18 21:21 1,000 MLS/HR Allergies Allergies Allergies Coded Allergies Type Severity Reaction Last Updated Verified No Known Drug Allergies 05/24/14 No Physical Exam Physical Exam Constitutional: No acute distress, non-toxic appearance. [] HENT: Normocephalic, atraumatic. Dry mucous membranes [] Eyes: EOMI, conjunctiva normal, no discharge. [] Neck: Normal range of motion, no tenderness, supple, no stridor. [] Cardiovascular: Heart rate regular rhythm, no murmur. [] Lungs & Thorax: Bilateral breath sounds clear to auscultation [] Abdomen: Bowel sounds normal, soft, no tenderness, no masses, no pulsatile masses. [] Skin: Warm, dry, no erythema, scattered purpura over the distal lower extremities bilaterally.[] Back: No tenderness, no CVA tenderness. [] Extremities: No tenderness, no clubbing, ROM intact, no edema, scattered purpura over the distal lower extremities bilaterally. [] Neurologic: Alert and oriented X 3, cranial nerves II through XII intact, normal motor function, normal sensory function, no focal deficits noted. [] Psychologic: Affect normal, judgement normal, mood normal. [] Current Patient Data Vital Signs Vital Signs Date Time Temp Pulse Resp B/P (MAP) Pulse Ox O2 Delivery O2 Flow Rate FiO2 06/08/18 21:10 84 103/73 (83) 95 06/08/18 20:13 98.3 18 Room Air 98.3 Lab Values Laboratory Tests Test 06/08/18 20:35 06/08/18 21:06 Urine Collection Type Unknown Urine Color Tracee Urine Clarity Clear Urine pH 6.0 Urine Specific [place] 1.025 Urine Protein Negative mg/dL (NEG-TRACE) Urine Glucose (UA) Negative mg/dL (NEG) Urine Ketones (Stick) Trace mg/dL (NEG) Urine Blood Negative (NEG) Urine Nitrite Negative (NEG) Urine Bilirubin Small (NEG) Urine Urobilinogen Dipstick 1.0 mg/dL (0.2 mg/dL) Urine Leukocyte Esterase Negative (NEG) Urine RBC 0 /HPF (0-2) Urine WBC 0 /HPF (0-4) Urine Squamous Epithelial Cells Many /LPF Urine Bacteria Moderate /HPF (0-FEW) Urine Mucus Mod /LPF Urine Yeast Present /HPF White Blood Count 6.1 x10^3/uL (4.0-11.0) Red Blood Count 4.12 x10^6/uL (4.30-5.70) L Hemoglobin 13.7 g/dL (13.0-17.5) Hematocrit 40.2 % (39.0-53.0) Mean Corpuscular Volume 98 fL (79-100) Mean Corpuscular Hemoglobin 33 pg (25-35) Mean Corpuscular Hemoglobin Concent 34 g/dL (31-37) Red Cell Distribution Width 14.6 % (11.5-14.5) H Platelet Count 115 x10^3/uL (140-400) L Neutrophils (%) (Auto) 47 % (31-73) Lymphocytes (%) (Auto) 38 % (24-48) Monocytes (%) (Auto) 12 % (0-9) H Eosinophils (%) (Auto) 3 % (0-3) Basophils (%) (Auto) 1 % (0-3) Neutrophils # (Auto) 2.9 x10^3uL (1.8-7.7) Lymphocytes # (Auto) 2.3 x10^3/uL (1.0-4.8) Monocytes # (Auto) 0.7 x10^3/uL (0.0-1.1) Eosinophils # (Auto) 0.2 x10^3/uL (0.0-0.7) Basophils # (Auto) 0.0 x10^3/uL (0.0-0.2) Sodium Level 142 mmol/L (136-145) Potassium Level 3.8 mmol/L (3.5-5.1) Chloride Level 105 mmol/L (98-107) Carbon Dioxide Level 30 mmol/L (21-32) Anion Gap 7 (6-14) Blood Urea Nitrogen 21 mg/dL (8-26) Creatinine 1.7 mg/dL (0.7-1.3) H Estimated GFR (Cockcroft-Gault) 39.2 BUN/Creatinine Ratio 12 (6-20) Glucose Level 93 mg/dL (70-99) Lactic Acid Level 1.4 mmol/L (0.4-2.0) Calcium Level 9.9 mg/dL (8.5-10.1) Total Bilirubin 0.8 mg/dL (0.2-1.0) Aspartate Amino Transferase (AST) 15 U/L (15-37) Alanine Aminotransferase (ALT) 17 U/L (16-63) Alkaline Phosphatase 121 U/L (46-116) H Creatine Kinase 54 U/L (39-308) Creatine Kinase MB (Mass) < 0.5 ng/mL (0.0-3.6) Creatine Kinase MB Relative Index % (0-4) Troponin I Quantitative < 0.017 ng/mL (0.000-0.055) Total Protein 6.7 g/dL (6.4-8.2) Albumin 3.4 g/dL (3.4-5.0) Albumin/Globulin Ratio 1.0 (1.0-1.7) Laboratory Tests 06/08/18 21:06 Laboratory Tests 06/08/18 21:06 EKG EKG @2108 Paced rhythm at 69bpm Radiology/Procedures Radiology/Procedures [] Course & Med Decision Making Course & Med Decision Making Pertinent Labs and Imaging studies reviewed. (See chart for details) This is a 77-year-old male who was brought to the ED via EMS because family member at home was concerned about patient's postural dizziness. Patient is otherwise asymptomatic, but had recent dysuria that has since resolved. Due to patient's age and prior cardiac history we will check basic labs, ECG and troponins. Dragon Disclaimer Dragon Disclaimer This electronic medical record was generated, in whole or in part, using a voice recognition dictation system. Departure Departure Impression: Primary Impression: Dizziness Additional Impressions: Candidiasis of urogenital site Dysuria Renal insufficiency Dehydration Disposition: HOME, SELF-CARE Condition: STABLE Referrals: BEAR HERMAN MD (PCP) Patient Instructions: Jud Infection, Adult, Dehydration, Elderly, Easy-to- Read, Dizziness, [id number] Scripts Fluconazole (DIFLUCAN) 150 Mg Tablet 1 TAB PO ONCE, #1 TAB 0 Refills Take on 06/14/18 Prov: LOLLY CASE DO 06/08/18 Problem Qualifiers LOLLY CASE DO Jun 08, 2018 20:40
[2018-06-08 20:44] LABS: BILIRUBIN,URINE SMALL (NEG); CLARITY,URINE CLEAR; COLOR,URINE AMBER; NITRITE,URINE NEGATIVE (NEG); PROTEIN,URINE NEGATIVE (NEG-TRACE)
[2018-06-08] MEDS ORDERED: IV NORMAL SALINE 1000ML BAG 1,000 ML IV ONE (20:45)
[2018-06-08 20:51] LABS: BACTERIA,URINE MODERATE /HPF (0-FEW); SQUAMOUS EPITHELIAL CELL,UR MANY /LPF
[2018-06-08 20:57] LABS: RBC,URINE 0 /HPF (0-2); WBC,URINE 0 /HPF (0-4); YEAST,URINE PRESENT /HPF
[2018-06-08 21:23] LABS: BASO % 1 % (0-3); EOS # 0.2 x10^3/uL (0.0-0.7); EOS % 3 % (0-3); HEMATOCRIT 40.2 % (39.0-53.0); HEMOGLOBIN 13.7 g/dL (13.0-17.5); LYMPH # 2.3 x10^3/uL (1.0-4.8); LYMPH % 38 % (24-48); MEAN CORPUSCULAR HEMOGLOBIN 33 pg (25-35); MEAN CORPUSCULAR HGB CONC 34 g/dL (31-37); MEAN CORPUSCULAR VOLUME 98 fL (79-100); MONO # 0.7 x10^3/uL (0.0-1.1); MONO % 12 % (0-9); NEUT # 2.9 x10^3uL (1.8-7.7); NEUT % 47 % (31-73); PLATELET COUNT 115 x10^3/uL (140-400); RED BLOOD COUNT 4.12 x10^6/uL (4.30-5.70); RED CELL DISTRIBUTION WIDTH 14.6 % (11.5-14.5); WHITE BLOOD COUNT 6.1 x10^3/uL (4.0-11.0)
[2018-06-08 21:36] LABS: CALCIUM 9.9 mg/dL (8.5-10.1); CREATININE 1.7 mg/dL (0.7-1.3); GFR 39.2; POTASSIUM 3.8 mmol/L (3.5-5.1)
[2018-06-08 21:43] LABS: ALBUMIN 3.4 g/dL (3.4-5.0); TOTAL BILIRUBIN 0.8 mg/dL (0.2-1.0); TOTAL PROTEIN 6.7 g/dL (6.4-8.2)
[2018-06-08] MEDS ORDERED: FLUCONAZOLE 100 MG TABLET. PO ONE (21:45)
[2018-06-08 22:08] LABS: CREATINE KINASE 54 U/L (39-308)
[2018-06-08] MEDS ORDERED: FLUC150T PO (22:36)
[2018-06-08 22:40] VITALS: BP 132/58
--- NOTE | 2018-06-09 07:28 | EKG ---
[facility] [address] [place] [address] Test Date: 2018-06-08 Test Time: 21:06:49 Pat Name: ALFIE FRANK Department: Room: Gender: Male Operations Administrator: : 1940 Requested By: LOLLY CASE Order Number: [id number] Reading MD: Justyn Britton MD Measurements Intervals [place] Rate: 68 P: -21 [place]: 186 QRS: -60 QRSD: 170 T: -5 QT: 428 QTc: 460 Interpretive Statements V-APCED PVC'S Electronically Signed On 06-10-2018 14:26:44 CHEMICAL UNIT OPERATOR by Justyn Britton MD
== END 2018-06-08 22:45 | disposition home or self-care (01) ==
LOC: ER 20:04
DX: B37.49 Other urogenital candidiasis (principal); E86.0 Dehydration; N28.9 Disorder of kidney and ureter, unspecified; E78.00 Pure hypercholesterolemia, unspecified; I10 Essential (primary) hypertension; I25.2 Old myocardial infarction; Z87.440 Personal history of urinary (tract) infections; Z95.1 Presence of aortocoronary bypass graft; Z95.0 Presence of cardiac pacemaker; N40.0 Benign prostatic hyperplasia without lower urinary tract symptoms; Z86.79 Personal history of other diseases of the circulatory system
CPT/HCPCS: 36415; 80053; 81001; 82553; 83605; 84484; 85025; 87086; 93005; 96360; 99285; J7030

== ENCOUNTER 2018-07-28 22:39 | Emergency (ER) | payer MEDICARE ==
[~2018-07-28] VITALS: Ht 170.2 cm; Wt 79.8 kg
[~2018-07-28 22:39] MED LIST changes: +FLUC150T PO; -LOSA25TA5 PO; +LOSA25TA54 PO
--- NOTE | 2018-07-28 22:55 | PHYS DOC ---
Past Medical History Past Medical History: High Cholesterol, Hypertension, [place], UTI Additional Past Medical Histor: MR, heart block pacemaker placed one month ago for heart block, BPH. Past Surgical History: Coronary Bypass Surgery, Pacemaker Alcohol Use: None Drug Use: None Adult General Chief Complaint Chief Complaint: DIARRHEA HPI HPI Patient is a 77 year old male who presents with left lower quadrant abdominal pain this started 2-3 days ago and has been getting worse over time. Diarrhea started today. No blood in the stool. No travel. No recent antibiotic use. No nausea or vomiting. Movement makes the discomfort worse. Holding still makes it better. No significant relief with aspirin that he was given by family at home. [] Review of Systems Review of Systems Constitutional: Denies fever or chills [] Eyes: Denies change in visual acuity, redness, or eye pain [] HENT: Denies nasal congestion or sore throat [] Respiratory: Denies cough or shortness of breath [] Cardiovascular: No chest pain or palpitations[] GI: See history of present illness[] : Denies dysuria or hematuria [] Musculoskeletal: Denies back pain or joint pain [] Integument: Denies rash or skin lesions [] Neurologic: Denies headache, focal weakness or sensory changes [] Endocrine: Denies polyuria or polydipsia [] All other systems were reviewed and found to be within normal limits, except as documented in this note. Current Medications Current Medications Current Medications Medications (Trade) Dose Ordered Sig/Kael Start Time Stop Time Status Last Admin Dose Admin Ceftriaxone Sodium (Rocephin) 1 gm 1X ONCE 07/29/18 01:00 07/29/18 01:01 DC 07/29/18 00:35 1 GM Hyoscyamine (Anaspaz) 0.125 mg ONCE ONCE 07/28/18 23:15 07/28/18 23:16 DC 07/28/18 23:15 0.125 MG Info (CONTRAST GIVEN -- Rx MONITORING) 1 each PRN DAILY PRN 07/29/18 00:15 07/31/18 00:14 Iohexol (Omnipaque 300 Mg/ml) 60 ml 1X ONCE 07/29/18 00:30 07/29/18 00:31 DC 07/29/18 00:23 60 ML Ketorolac Tromethamine (Toradol 30mg Vial) 30 mg 1X ONCE 07/28/18 23:15 07/28/18 23:16 DC 07/28/18 23:16 30 MG Metoclopramide HCl (Reglan Vial) 10 mg 1X ONCE 07/28/18 23:15 07/28/18 23:16 DC 07/28/18 23:16 10 MG Sodium Chloride 500 ml @ 500 mls/hr 1X ONCE 07/29/18 01:00 07/29/18 01:59 07/29/18 00:35 500 MLS/HR Allergies Allergies Allergies Coded Allergies Type Severity Reaction Last Updated Verified No Known Drug Allergies 05/24/14 No Physical Exam Physical Exam Constitutional: Well developed, well nourished, no acute distress, non-toxic appearance. [] HENT: Normocephalic, atraumatic, bilateral external ears normal, oropharynx moist, no oral exudates, nose normal. [] Eyes: PERRLA, EOMI, conjunctiva normal, no discharge. [] Neck: Normal range of motion, no tenderness, supple, no stridor. [] Cardiovascular:Heart rate regular rhythm, no murmur [] Lungs & Thorax: Bilateral breath sounds clear to auscultation [] Abdomen: Bowel sounds normal, soft, tenderness in the left lower quadrant, no rebound, no guarding, no rigidity. Sits up without any difficulty, no masses, no pulsatile masses. [] Skin: Warm, dry, no erythema, no rash. [] Back: No tenderness, no CVA tenderness. [] Extremities: No tenderness, no cyanosis, no clubbing, ROM intact, no edema. [] Neurologic: Alert and oriented X 3, normal motor function, normal sensory function, no focal deficits noted. [] Psychologic: Affect normal, judgement normal, mood normal. [] Current Patient Data Vital Signs Vital Signs Date Time Temp Pulse Resp B/P (MAP) Pulse Ox O2 Delivery O2 Flow Rate FiO2 07/28/18 22:40 97.9 66 18 180/79 (112) 94 Room Air 97.9 Lab Values Laboratory Tests Test 07/28/18 22:50 07/28/18 23:19 07/28/18 23:53 White Blood Count 7.5 x10^3/uL (4.0-11.0) Red Blood Count 4.36 x10^6/uL (4.30-5.70) Hemoglobin 14.4 g/dL (13.0-17.5) Hematocrit 42.6 % (39.0-53.0) Mean Corpuscular Volume 98 fL (79-100) Mean Corpuscular Hemoglobin 33 pg (25-35) Mean Corpuscular Hemoglobin Concent 34 g/dL (31-37) Red Cell Distribution Width 15.1 % (11.5-14.5) H Platelet Count 114 x10^3/uL (140-400) L Neutrophils (%) (Auto) 57 % (31-73) Lymphocytes (%) (Auto) 32 % (24-48) Monocytes (%) (Auto) 9 % (0-9) Eosinophils (%) (Auto) 1 % (0-3) Basophils (%) (Auto) 1 % (0-3) Neutrophils # (Auto) 4.3 x10^3uL (1.8-7.7) Lymphocytes # (Auto) 2.4 x10^3/uL (1.0-4.8) Monocytes # (Auto) 0.7 x10^3/uL (0.0-1.1) Eosinophils # (Auto) 0.1 x10^3/uL (0.0-0.7) Basophils # (Auto) 0.0 x10^3/uL (0.0-0.2) Prothrombin Time 12.5 SEC (11.7-14.0) Prothrombin Time INR 1.0 (0.8-1.1) Sodium Level 144 mmol/L (136-145) Potassium Level 4.3 mmol/L (3.5-5.1) Chloride Level 110 mmol/L (98-107) H Carbon Dioxide Level 27 mmol/L (21-32) Anion Gap 7 (6-14) Blood Urea Nitrogen 23 mg/dL (8-26) Creatinine 1.2 mg/dL (0.7-1.3) Estimated GFR (Cockcroft-Gault) 58.6 BUN/Creatinine Ratio 19 (6-20) Glucose Level 124 mg/dL (70-99) H Calcium Level 9.9 mg/dL (8.5-10.1) Total Bilirubin 0.6 mg/dL (0.2-1.0) Aspartate Amino Transferase (AST) 14 U/L (15-37) L Alanine Aminotransferase (ALT) 20 U/L (16-63) Alkaline Phosphatase 113 U/L (46-116) Troponin I Quantitative < 0.017 ng/mL (0.000-0.055) Total Protein 6.7 g/dL (6.4-8.2) Albumin 3.3 g/dL (3.4-5.0) L Albumin/Globulin Ratio 1.0 (1.0-1.7) Lipase 54 U/L (73-393) L Urine Collection Type Unknown Urine Color Yellow Urine Clarity Clear Urine pH 6.5 Urine Specific [place] >=1.030 Urine Protein Negative mg/dL (NEG-TRACE) Urine Glucose (UA) Negative mg/dL (NEG) Urine Ketones (Stick) Negative mg/dL (NEG) Urine Blood Negative (NEG) Urine Nitrite Negative (NEG) Urine Bilirubin Small (NEG) Urine Urobilinogen Dipstick 2.0 mg/dL (0.2 mg/dL) Urine Leukocyte Esterase Small (NEG) Urine RBC Occ /HPF (0-2) Urine WBC 5-10 /HPF (0-4) Urine Squamous Epithelial Cells Few /LPF Urine Bacteria Moderate /HPF (0-FEW) Urine Mucus Mod /LPF Laboratory Tests 07/28/18 22:50 Laboratory Tests 07/28/18 23:19 EKG EKG EKG shows a sinus rhythm at 60 bpm, axis of -124, QTC of [address] elevations , and compared with EKG of 06/08/2018, patient was noted to be paced at that time, no evidence of pacemaker spikes on today's EKG[] Radiology/Procedures Radiology/Procedures CT abdomen and pelvis with contrast. HISTORY: Left lower quadrant pain CT scan of the abdomen and pelvis was done using 60 mL Omnipaque 300 contrast. There is a calcified granuloma in the right lower lobe. There is mild atelectasis in the lung bases without other infiltrates. There is no effusion. There is a moderate hiatus hernia. A liver lesion is not identified. There are no calcified gallstones. Spleen and adrenal glands are normal. Pancreas is normal. There is no mass or hydronephrosis in the kidneys. There is a left peripelvic renal cyst without change. There is no ureteral calculus. Bowel pattern is normal. Appendix is normal. There is diverticulosis of the colon. I do not see an acute diverticulitis. There is mild wall thickening in the sigmoid colon which is nonspecific. IMPRESSION: 1. Hiatus hernia. 2. No bowel obstruction. 3. Diverticulosis without acute diverticulitis 4. No bowel obstruction. 5. Mild bowel wall thickening of the sigmoid colon possibly diverticulosis, colonoscopy could be of benefit.[] Course & Med Decision Making Course & Med Decision Making Pertinent Labs and Imaging studies reviewed. (See chart for details) Medical decision making: There is no evidence of diverticulitis, obstruction, perforation, nor significant electrolytic abnormality. Patient is receiving IV antibiotics for urinary tract infection. Do not see any evidence of pyelonephritis. Will continue oral outpatient medication. There is no evidence of inadequate pain control. Patient had significant relief with the pain medicines administered. ED course: She arrived, was placed in bed, in tolerated exam well. Patient was transferred to and from [place] with any complications. Patient was given IV fluids as well as initial dose of IV antibiotics for the urinary tract infection. Patient was informed of the lab and imaging findings and all questions were answered. Patient was discharged in improved condition.[] Dragon Disclaimer Dragon Disclaimer This electronic medical record was generated, in whole or in part, using a voice recognition dictation system. Departure Departure Impression: Primary Impression: Urinary tract infection Additional Impression: Diarrhea Disposition: 01 HOME, SELF-CARE Condition: GOOD Referrals: BEAR HERMAN MD (PCP) Follow-up in 2 days Patient Instructions: Diarrhea, Diet for Diarrhea, Adult, Urinary Tract Infection Additional Instructions: Drink plenty of fluids. Follow-up with your primary care physician in 2 days. Return to the ER if worsening pain, fever, or any other concerns. Scripts Hyoscyamine Sulfate (LEVSIN) 0.125 Mg Tablet 0.125 MG PO QID, #30 TAB Prov: SOLANGE BECERRIL DO 07/29/18 Cephalexin (CEPHALEXIN) 500 Mg Tablet 1 TAB PO TID, #30 TAB Prov: SOLANGE BECERRIL DO 07/29/18 Problem Qualifiers Primary Impression: Urinary tract infection Urinary tract infection type: site unspecified Hematuria presence: without hematuria Qualified Codes: N39.0 - Urinary tract infection, site not specified Additional Impression: Diarrhea Diarrhea type: unspecified type Qualified Codes: R19.7 - Diarrhea, unspecified SOLANGE BECERRIL DO Jul 28, 2018 22:55
[2018-07-28 23:05] LABS: BASO % 1 % (0-3); EOS # 0.1 x10^3/uL (0.0-0.7); EOS % 1 % (0-3); HEMATOCRIT 42.6 % (39.0-53.0); HEMOGLOBIN 14.4 g/dL (13.0-17.5); LYMPH # 2.4 x10^3/uL (1.0-4.8); LYMPH % 32 % (24-48); MEAN CORPUSCULAR HEMOGLOBIN 33 pg (25-35); MEAN CORPUSCULAR HGB CONC 34 g/dL (31-37); MEAN CORPUSCULAR VOLUME 98 fL (79-100); MONO # 0.7 x10^3/uL (0.0-1.1); MONO % 9 % (0-9); NEUT # 4.3 x10^3uL (1.8-7.7); NEUT % 57 % (31-73); PLATELET COUNT 114 x10^3/uL (140-400); RED BLOOD COUNT 4.36 x10^6/uL (4.30-5.70); RED CELL DISTRIBUTION WIDTH 15.1 % (11.5-14.5); WHITE BLOOD COUNT 7.5 x10^3/uL (4.0-11.0)
[2018-07-28 23:15] LABS: PROTHROMBIN TIME PATIENT 12.5 SEC (11.7-14.0)
[2018-07-28] MEDS ORDERED: METOCLOPRAMIDE HCL 10 MG/2 ML VIAL. IV ONE (23:15)
[2018-07-28] MEDS ORDERED: HYOSCYAMINE 0.125 MG TAB.RAPDIS PO ONE (23:15)
[2018-07-28] MEDS ORDERED: KETOROLAC 30 MG/ML VIAL. IV ONE (23:15)
[2018-07-29 00:01] LABS: CALCIUM 9.9 mg/dL (8.5-10.1); CREATININE 1.2 mg/dL (0.7-1.3); GFR 58.6; POTASSIUM 4.3 mmol/L (3.5-5.1)
[2018-07-29 00:03] LABS: BILIRUBIN,URINE SMALL (NEG); CLARITY,URINE CLEAR; COLOR,URINE YELLOW; NITRITE,URINE NEGATIVE (NEG); PH,URINE 6.5; PROTEIN,URINE NEGATIVE (NEG-TRACE)
[2018-07-29 00:06] LABS: ALBUMIN 3.3 g/dL (3.4-5.0); TOTAL BILIRUBIN 0.6 mg/dL (0.2-1.0); TOTAL PROTEIN 6.7 g/dL (6.4-8.2)
[2018-07-29 00:12] LABS: BACTERIA,URINE MODERATE /HPF (0-FEW); RBC,URINE OCC /HPF (0-2); SQUAMOUS EPITHELIAL CELL,UR FEW /LPF
[2018-07-29] MEDS ORDERED: CONTRAST GIVEN. MC PRN (00:15)
[2018-07-29] MEDS ORDERED: IOHEXOL 300 MG/ML 100ML VIAL. IV ONE (00:30)
--- NOTE | 2018-07-29 00:45 | RAD ---
CT abdomen and pelvis with contrast. HISTORY: Left lower quadrant pain CT scan of the abdomen and pelvis was done using 60 mL Omnipaque 300 contrast. There is a calcified granuloma in the right lower lobe. There is mild atelectasis in the lung bases without other infiltrates. There is no effusion. There is a moderate hiatus hernia. A liver lesion is not identified. There are no calcified gallstones. Spleen and adrenal glands are normal. Pancreas is normal. There is no mass or hydronephrosis in the kidneys. There is a left peripelvic renal cyst without change. There is no ureteral calculus. Bowel pattern is normal. Appendix is normal. There is diverticulosis of the colon. I do not see an acute diverticulitis. There is mild wall thickening in the sigmoid colon which is nonspecific. IMPRESSION: 1. Hiatus hernia. 2. No bowel obstruction. 3. Diverticulosis without acute diverticulitis 4. No bowel obstruction. 5. Mild bowel wall thickening of the sigmoid colon possibly diverticulosis, colonoscopy could be of benefit. Electronically signed by: Jsuten Arrieta MD (07/29/2018 12:40 AM) [id number]
[2018-07-29] MEDS ORDERED: IV NORMAL SALINE 500ML BAG 500 ML IV ONE (01:00)
[2018-07-29] MEDS ORDERED: cefTRIAXone IV Push 1 GM VIAL. IVP ONE (01:00)
[2018-07-29 01:09] VITALS: BP 112/53
[2018-07-29] MEDS ORDERED: HYOS0.1264 PO (01:15)
[2018-07-29] MEDS ORDERED: CEPH500T PO (01:15)
--- NOTE | 2018-07-29 06:43 | EKG ---
[facility] [address] [place] [address] Test Date: 2018-07-28 Test Time: 23:08:40 Pat Name: ALFIE FRANK Department: Room: Gender: Media Services Coordinator: DAIJA : 1940 Requested By: SOLANGE BECERRIL Order Number: [id number] Reading MD: Avery Lee Measurements Intervals [place] Rate: 60 P: 0 DE: 112 QRS: -124 QRSD: 164 T: 14 QT: 426 QTc: 430 Interpretive Statements A SENSED, V PACED Electronically Signed On 08-05-2018 10:36:47 BUSINESS SERVICES TECH by Avery Lee
== END 2018-07-29 01:30 | disposition home or self-care (01) ==
LOC: ER 07-29 01:30
DX: N39.0 Urinary tract infection, site not specified (principal); R19.7 Diarrhea, unspecified; K44.9 Diaphragmatic hernia without obstruction or gangrene; K57.90 Diverticulosis of intestine, part unspecified, without perforation or abscess without bleeding
CPT/HCPCS: 36415; 74177; 80053; 81001; 83690; 84484; 85025; 85610; 87086; 93005; 96361; 96374; 96375; 99284; J0696; J1885; J2765; J7040; Q9967

== ENCOUNTER 2019-04-28 18:05 | Inpatient (IN) | payer MEDICARE ==
[~2019-04-28] VITALS: Ht 180.3 cm; Wt 79.8 kg
[~2019-04-28 18:05] MED LIST changes: +CEPH500T PO; +HYOS0.1264 PO
[2019-04-28] MEDS ORDERED: ACETAMINOPHEN 650 MG SUPP.RECT. PR ONE (18:15)
[2019-04-28] MEDS ORDERED: IV NORMAL SALINE 1000ML BAG 1,000 ML IV ONE ×2 (18:15→19:45)
[2019-04-28] MEDS ORDERED: VANCOMYCIN PER PHARMACY MC PRN ×2 (18:15→21:30)
[2019-04-28] MEDS ORDERED: NOREPINEPHRIN 8MG/250ML PREMIX 250 ML IV PRN (18:15)
[2019-04-28] MEDS ORDERED: PIPERACILLIN/TAZOBACTAM 4.5 GM in IV NORMAL SALINE 100ML 100 ML IV ONE (18:30)
[2019-04-28 18:40] LABS: BILIRUBIN,URINE NEGATIVE (NEG); CLARITY,URINE CLEAR; COLOR,URINE YELLOW; NITRITE,URINE NEGATIVE (NEG); PH,URINE 5.5; PROTEIN,URINE NEGATIVE (NEG-TRACE); UROBILINOGEN,URINE 0.2 mg/dL (0.2 mg/dL)
[2019-04-28] MEDS: ACETAMINOPHEN 500 MG TABLET PO ONE ×2 (18:40→18:48)
[2019-04-28 18:43] LABS: PROTHROMBIN TIME PATIENT 13.7 SEC (11.7-14.0)
[2019-04-28 18:53] LABS: INFLUENZA A PATIENT NEGATIVE (NEGATIVE); INFLUENZA B PATIENT NEGATIVE (NEGATIVE)
[2019-04-28 18:53] LABS: BACTERIA,URINE FEW /HPF (0-FEW); RBC,URINE 0 /HPF (0-2); SQUAMOUS EPITHELIAL CELL,UR OCC /LPF
[2019-04-28] MEDS ORDERED: VANCOMYCIN 2 GM in IV NORMAL SALINE 500ML BAG 500 ML IV ONE (19:00)
[2019-04-28 19:19] LABS: ALBUMIN 3.2 g/dL (3.4-5.0); DIRECT BILIRUBIN 0.2 mg/dL (0.0-0.2); TOTAL BILIRUBIN 0.9 mg/dL (0.2-1.0); TOTAL PROTEIN 6.3 g/dL (6.4-8.2)
--- NOTE | 2019-04-28 19:30 | RAD ---
PQRS Compliance statement: One or more of the following individualized dose reduction techniques were utilized for this examination: 1. Automated exposure control. 2. Adjustment of the mA and/or kV according to patient size. 3. Use of iterative reconstruction technique. Indication:Altered mental status TECHNIQUE: CT head without IV contrast COMPARISON: 10/06/2017 FINDINGS: No pathologic extra-axial or intra-axial fluid collection. Mild atrophy. The ventricles and basal cisterns are within normal limits. No acute intracranial bleed. No focal loss of nava-white differentiation. Orbits are within normal limits. No suspicious calvarial lesion. Visualized paranasal sinuses and mastoid air cells are clear. IMPRESSION: No acute intracranial bleed. If concern for acute ischemic stroke is high, please consider MRI brain. Indication:Fever. Altered mental status. TECHNIQUE:Portable AP chest X-ray COMPARISON: 11/25/2017 FINDINGS: Heart is normal in size. CABG changes noted. Stable position of left chest wall cardiac pacer with leads projecting over the heart. Diffuse is tissue opacities without focal lesion. No pneumothorax or pleural effusion. Visualized bony thorax within normal limits. IMPRESSION: Interstitial pulmonary edema or atypical/viral infection. Electronically signed by: Joseph Nava DO (04/28/2019 7:27 PM) [id number]
--- NOTE | 2019-04-28 20:08 | NUR ---
Pharmacy Vancomycin Dosing Note S: Consulted to monitor and dose vancomycin started 04/28/19. O: MONIKAALFIE P is a 78 year old M for Empiric treatment . Other Antibiotics: ZOSYN LABS: Last BUN: 23 Last Creatinine: 1.2 Creatinine Clearance: 54 mL/min Last WBC: Last Procalcitonin: 4.12 Tmax (past 24 hours): 101.5 Vancomycin Dosing: Dosing Weight: Actual Target Trough: 10-20 A: Based on: VANCO dosing guidelines P: 1. Begin Vancomycin 2000mg LOAD dose, then 1250 mg IV q24h 2. Follow up Trough level on 04/30/19 at 1930 3. Pharmacy will continue to monitor, follow and adjust therapy as needed. BLAYNE BURTON [facility], 04/28/192007
--- NOTE | 2019-04-28 20:41 | PHYS DOC ---
Past Medical History Past Medical History: A-Fib, High Cholesterol, Hypertension, [place], UTI Additional Past Medical Histor: MR, heart block pacemaker placed one month ago for heart block, BPH. Past Surgical History: Coronary Bypass Surgery, Pacemaker Alcohol Use: None Drug Use: None Adult General Chief Complaint Chief Complaint: ALTERED MENTAL STATUS HPI HPI Patient is a 78-year-old male who lives at home with his brother who presents via EMS tonight with fever and altered mental status. According to family the patient received his flu shot sometime yesterday afternoon and then a couple of hours later did not seem quite right. His brother thought that his symptoms would pass and let him go to bed. This evening the brother reported that he didn't seem right he was slumped over in the chair and was not responding normally. The brother was concerned and called EMS. There was no report of fever by the family. Patient was unable to provide any history other than to state he doesn't feel well. He also later said that he did have a bit of a dry cough yesterday.[] Review of Systems Review of Systems Review of systems is unobtainable secondary to altered mental status. Current Medications Current Medications Current Medications Medications (Trade) Dose Ordered Sig/Kael Start Time Stop Time Status Last Admin Dose Admin Acetaminophen (Tylenol Supp) 650 mg 1X ONCE 04/28/19 18:15 04/28/19 18:20 DC 04/28/19 18:48 650 MG Acetaminophen (Tylenol) 1,000 mg 1X ONCE 04/28/19 18:45 04/28/19 18:46 DC Norepinephrine Bitartrate 250 ml @ 0 mls/hr CONT PRN 04/28/19 18:15 Piperacillin Sod/ Tazobactam Sod 4.5 gm/Sodium Chloride 100 ml @ 200 mls/hr 1X ONCE 04/28/19 18:30 04/28/19 18:59 DC 04/28/19 19:19 200 MLS/HR Sodium Chloride 1,000 ml @ 1,000 mls/hr 1X ONCE 04/28/19 19:45 04/28/19 20:44 DC 04/28/19 19:47 1,000 MLS/HR Vancomycin HCl (Vanco Per Pharmacy) 1 each PRN DAILY PRN 04/28/19 18:15 04/28/19 20:05 1 EACH Vancomycin HCl 2 gm/Sodium Chloride 500 ml @ 250 mls/hr 1X ONCE 04/28/19 19:00 04/28/19 20:59 DC 04/28/19 19:20 250 MLS/HR Allergies Allergies Allergies Coded Allergies Type Severity Reaction Last Updated Verified No Known Drug Allergies 05/24/14 No Physical Exam Physical Exam Constitutional: Frail elderly male who appears acutely ill. [] HENT: Normocephalic, atraumatic, bilateral external ears normal, mucous membranes are dry. [] Eyes: PERRLA, EOMI, conjunctiva normal, no discharge. [] Neck: Normal range of motion, no tenderness, supple, no stridor, no meningismus. [] Cardiovascular:Heart rate regular rhythm, no murmur [] Lungs & Thorax: Bilateral breath sounds clear to auscultation, no wheezes rales or rhonchi [] Abdomen: Bowel sounds normal, soft, no tenderness, no masses, no pulsatile masses. [] Skin: Warm, dry, no erythema, no rash. [] Back: No tenderness, no CVA tenderness. [] Extremities: No tenderness, no cyanosis, no clubbing, ROM intact, no edema. [] Neurologic: Obtunded. [] Psychologic: Unable to assess. [] Current Patient Data Vital Signs Vital Signs Date Time Temp Pulse Resp B/P (MAP) Pulse Ox O2 Delivery O2 Flow Rate FiO2 04/28/19 21:00 71 99 04/28/19 18:05 101.5 24 114/54 (74) 2.0 101.5 Lab Values Laboratory Tests Test 04/28/19 18:17 04/28/19 18:23 04/28/19 18:29 04/28/19 18:56 Prothrombin Time 13.7 SEC (11.7-14.0) Prothrombin Time INR 1.1 (0.8-1.1) Activated Partial Thromboplast Time 25 SEC (24-38) Influenza Type A Antigen Negative (NEGATIVE) Influenza Type B Antigen Negative (NEGATIVE) Urine Collection Type U cath Urine Color Yellow Urine Clarity Clear Urine pH 5.5 Urine Specific [place] 1.015 Urine Protein Negative mg/dL (NEG-TRACE) Urine Glucose (UA) Negative mg/dL (NEG) Urine Ketones (Stick) Negative mg/dL (NEG) Urine Blood Negative (NEG) Urine Nitrite Negative (NEG) Urine Bilirubin Negative (NEG) Urine Urobilinogen Dipstick 0.2 mg/dL (0.2 mg/dL) Urine Leukocyte Esterase Small (NEG) Urine RBC 0 /HPF (0-2) Urine WBC 5-10 /HPF (0-4) Urine Squamous Epithelial Cells Occ /LPF Urine Bacteria Few /HPF (0-FEW) Urine Mucus Mod /LPF White Blood Count 9.3 x10^3/uL (4.0-11.0) Red Blood Count 3.94 x10^6/uL (4.30-5.70) L Hemoglobin 13.1 g/dL (13.0-17.5) Hematocrit 38.8 % (39.0-53.0) L Mean Corpuscular Volume 99 fL (79-100) Mean Corpuscular Hemoglobin 33 pg (25-35) Mean Corpuscular Hemoglobin Concent 34 g/dL (31-37) Red Cell Distribution Width 14.9 % (11.5-14.5) H Platelet Count 100 x10^3/uL (140-400) L Neutrophils (%) (Auto) 84 % (31-73) H Lymphocytes (%) (Auto) 8 % (24-48) L Monocytes (%) (Auto) 7 % (0-9) Eosinophils (%) (Auto) 0 % (0-3) Basophils (%) (Auto) 0 % (0-3) Neutrophils # (Auto) 7.8 x10^3/uL (1.8-7.7) H Lymphocytes # (Auto) 0.8 x10^3/uL (1.0-4.8) L Monocytes # (Auto) 0.7 x10^3/uL (0.0-1.1) Eosinophils # (Auto) 0.0 x10^3/uL (0.0-0.7) Basophils # (Auto) 0.0 x10^3/uL (0.0-0.2) Sodium Level 144 mmol/L (136-145) Potassium Level 3.7 mmol/L (3.5-5.1) Chloride Level 109 mmol/L (98-107) H Carbon Dioxide Level 25 mmol/L (21-32) Anion Gap 10 (6-14) Blood Urea Nitrogen 14 mg/dL (8-26) Creatinine 1.3 mg/dL (0.7-1.3) Estimated GFR (Cockcroft-Gault) 53.3 Glucose Level 103 mg/dL (70-99) H Lactic Acid Level 2.0 mmol/L (0.4-2.0) Calcium Level 9.8 mg/dL (8.5-10.1) Total Bilirubin 0.9 mg/dL (0.2-1.0) Direct Bilirubin 0.2 mg/dL (0.0-0.2) Aspartate Amino Transferase (AST) 16 U/L (15-37) Alanine Aminotransferase (ALT) 14 U/L (16-63) L Alkaline Phosphatase 118 U/L (46-116) H Creatine Kinase 81 U/L (39-308) Total Protein 6.3 g/dL (6.4-8.2) L Albumin 3.2 g/dL (3.4-5.0) L Procalcitonin 4.12 ng/mL (0.00-0.10) H Laboratory Tests 04/28/19 18:56 Laboratory Tests 04/28/19 18:56 EKG EKG [] Interpretation Time: EKG: Paced rhythm rate is 70 no obvious ischemic abnormalities Radiology/Procedures Radiology/Procedures [] Impressions: TECHNIQUE: CT head without IV contrast COMPARISON: 10/06/2017 FINDINGS: No pathologic extra-axial or intra-axial fluid collection. Mild atrophy. The ventricles and basal cisterns are within normal limits. No acute intracranial bleed. No focal loss of nava-white differentiation. Orbits are within normal limits. No suspicious calvarial lesion. Visualized paranasal sinuses and mastoid air cells are clear. IMPRESSION: No acute intracranial bleed. If concern for acute ischemic stroke is high, please consider MRI brain. Indication:Fever. Altered mental status. TECHNIQUE:Portable AP chest X-ray COMPARISON: 11/25/2017 FINDINGS: Heart is normal in size. CABG changes noted. Stable position of left chest wall cardiac pacer with leads projecting over the heart. Diffuse is tissue opacities without focal lesion. No pneumothorax or pleural effusion. Visualized bony thorax within normal limits. IMPRESSION: Interstitial pulmonary edema or atypical/viral infection. Course & Med Decision Making Course & Med Decision Making Pertinent Labs and Imaging studies reviewed. (See chart for details) [ED course: Evaluation reveals a 78-year-old male with altered mental status and fever. When EMS brought him in he did have a temperature greater than 101. Sepsis pathway was started the patient was given IV fluids and broad-spectrum antibiotics. His initial lactic acid was 2.0. After 2 L of IV fluids the patient's mental status completely cleared he was awake and alert and actually smiling and laughing. After family showed up they state that when he gets dehydrated or an infection he acts this way. We will go ahead and admit the patient to the hospital to follow and continue IV fluids and broad-spectrum antibiotics.] CRITICAL CARE: Time spent was 35 minutes. This includes medical management, evaluation, reevaluation, discussion with consultants and family. Critical Care does NOT include time spent on separately billed procedures. Dragon Disclaimer Dragon Disclaimer This electronic medical record was generated, in whole or in part, using a voice recognition dictation system. Departure Departure Impression: Primary Impression: Altered mental status Additional Impression: Fever Disposition: 09 ADMITTED INPATIENT Condition: GUARDED Referrals: BEAR HERMAN MD (PCP) Problem Qualifiers Primary Impression: Altered mental status Altered mental status type: unspecified Qualified Codes: R41.82 - Altered mental status, unspecified Additional Impression: Fever Fever type: unspecified Qualified Codes: R50.9 - Fever, unspecified MEET CLAIRE DO Apr 28, 2019 20:41
[2019-04-28 21:16] LABS: BASO % 0 % (0-3); EOS % 0 % (0-3); HEMATOCRIT 38.8 % (39.0-53.0); HEMOGLOBIN 13.1 g/dL (13.0-17.5); LYMPH # 0.8 x10^3/uL (1.0-4.8); LYMPH % 8 % (24-48); MEAN CORPUSCULAR HEMOGLOBIN 33 pg (25-35); MEAN CORPUSCULAR HGB CONC 34 g/dL (31-37); MEAN CORPUSCULAR VOLUME 99 fL (79-100); MONO # 0.7 x10^3/uL (0.0-1.1); MONO % 7 % (0-9); NEUT # 7.8 x10^3/uL (1.8-7.7); NEUT % 84 % (31-73); PLATELET COUNT 100 x10^3/uL (140-400); RED BLOOD COUNT 3.94 x10^6/uL (4.30-5.70); RED CELL DISTRIBUTION WIDTH 14.9 % (11.5-14.5); WHITE BLOOD COUNT 9.3 x10^3/uL (4.0-11.0)
[2019-04-28 21:17] LABS: CALCIUM 9.8 mg/dL (8.5-10.1); CREATININE 1.3 mg/dL (0.7-1.3); GFR 53.3; POTASSIUM 3.7 mmol/L (3.5-5.1)
[2019-04-28] MEDS ORDERED: ACETAMINOPHEN 325 MG TABLET. PO PRN (21:30)
[2019-04-28] MEDS ORDERED: ONDANSETRON PF 4 MG/2 ML VIAL. IV PRN (21:30)
[2019-04-28 23:00] VITALS: BP 103/41
[2019-04-28] MEDS: IV NORMAL SALINE 1000ML BAG 1,000 ML IV SCH (23:30)
[2019-04-29] MEDS ORDERED: PIPERACILLIN/TAZOBACTAM 3.375 GM in IV NORMAL SALINE 50ML 50 ML IV SCH ×2
[2019-04-29] MEDS ORDERED: PIPERACILLIN/TAZOBACTAM 4.5 GM in IV NORMAL SALINE 100ML 100 ML IV SCH ×2
[2019-04-29] MEDS: PIPERACILLIN/TAZOBACTAM 4.5 GM in IV NORMAL SALINE 100ML 100 ML IV SCH ×5 (00:27→23:46)
[2019-04-29 03:00] VITALS: BP 99/44
[2019-04-29 04:43] LABS: BASO % 0 % (0-3); EOS % 0 % (0-3); HEMATOCRIT 33.9 % (39.0-53.0); HEMOGLOBIN 11.4 g/dL (13.0-17.5); LYMPH # 1.6 x10^3/uL (1.0-4.8); LYMPH % 13 % (24-48); MEAN CORPUSCULAR HEMOGLOBIN 33 pg (25-35); MEAN CORPUSCULAR HGB CONC 34 g/dL (31-37); MEAN CORPUSCULAR VOLUME 98 fL (79-100); MONO # 0.8 x10^3/uL (0.0-1.1); MONO % 7 % (0-9); NEUT # 9.6 x10^3/uL (1.8-7.7); NEUT % 80 % (31-73); PLATELET COUNT 77 x10^3/uL (140-400); RED BLOOD COUNT 3.46 x10^6/uL (4.30-5.70); WHITE BLOOD COUNT 12.1 x10^3/uL (4.0-11.0)
[2019-04-29 05:06] LABS: CALCIUM 8.9 mg/dL (8.5-10.1); CREATININE 1.3 mg/dL (0.7-1.3); GFR 53.3; POTASSIUM 3.9 mmol/L (3.5-5.1)
--- NOTE | 2019-04-29 05:59 | EKG ---
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
[2019-04-29 07:00] VITALS: BP 99/53
[2019-04-29] MEDS ORDERED: LORazepam 0.5 MG TABLET PO PRN (08:15)
[2019-04-29] MEDS ORDERED: ONDANSETRON PF 4 MG/2 ML VIAL. IV PRN (08:15)
[2019-04-29] MEDS: ASPIRIN CHEWABLE 81 MG TABLET. PO SCH (09:11)
[2019-04-29] MEDS: LACTOBACILLUS RHAMNOSUS GG 1 CAPSULE. PO SCH ×2 (09:11→20:33)
[2019-04-29] MEDS: CHOLECALCIFEROL (VITAMIN D3) 5,000 UNIT CAPSULE PO SCH (09:11)
[2019-04-29] MEDS: DOXYCYCLINE HYCLATE 100 MG TABLET PO SCH ×2 (09:12→20:33)
[2019-04-29 10:32] LABS: MYCOPLASMA PATIENT NEGATIVE (NEGATIVE)
[2019-04-29 10:44] VITALS: BP 106/39
--- NOTE | 2019-04-29 10:47 | PDOC1 ---
History and Physical Date of Admission Date of Admission DATE: 04/29/19 TIME: 10:41 Identification/Chief Complaint Chief Complaint confusion Source Source: Caregiver, Chart review, Patient History of Present Illness History of Present Illness 78 male lives at home with the nephew, got the flu shot few days ago, then nephew noted some confusion, Then resolved on its own, Then got confused again worse, chills, fever so brought to er last night. Hypotensive (on 2 BP meds at home), got hydrated, empiric vanc zosyn (no source) then got better after IVF hydration and a dose of abx at ER, ER was actually contemplating LP if he did not get better but he perked up, He is alert and oriented and back to baseline, though still bp on low side, he claims he tends to run low,.UA is clean, CXR maybe atypical infection? no rash or diarrhea, ate a full breakfast, No fam at bedside, Seemingly no PT needs. WBc 12 today (was normal on admit), procalcitonin 4, rpt is pending Past Medical History Cardiovascular: CAD, HTN, [place], Hyperlipidemia Pulmonary: No pertinent hx CENTRAL NERVOUS SYSTEM: Other GI: No pertinent hx Heme/Onc: No pertinent hx Hepatobiliary: No pertinent hx Psych: No pertinent hx Musculoskeletal: Bursitis, Osteoarthritis Rheumatologic: No pertinent hx Infectious disease: No pertinent hx Renal/: No pertinent hx Endocrine: No pertinent hx Past Surgical History Past Surgical History: CABG, Cataract Removal Family History Family History: Coronary Artery Disease Social History Smoke: No ALCOHOL: none Drugs: None Current Problem List Problem List Problems Medical Problems: (1) Fever Status: Acute Current Medications Current Medications Current Medications Vancomycin HCl (Vanco Per Pharmacy) 1 each PRN DAILY PRN MC SEE COMMENTS Last administered on 04/28/19at 20:05; Start 04/28/19 at 18:15 Piperacillin Sod/ Tazobactam Sod 4.5 gm/Sodium Chloride 100 ml @ 200 mls/hr Q6HRS IV ; Start 04/29/19 at 00:00; Status UNV Norepinephrine Bitartrate 250 ml @ 0 mls/hr CONT PRN IV SEE I/O RECORD; Start 04/28/19 at 18:15; Stop 04/29/19 at 08:10; Status DC Sodium Chloride 1,000 ml @ 1,000 mls/hr 1X ONCE IV Last administered on 04/28/19at 18:29; Start 04/28/19 at 18:15; Stop 04/28/19 at 19:14; Status DC Acetaminophen (Tylenol Supp) 650 mg 1X ONCE MA Last administered on 04/28/19at 18:48; Start 04/28/19 at 18:15; Stop 04/28/19 at 18:20; Status DC Piperacillin Sod/ Tazobactam Sod 4.5 gm/Sodium Chloride 100 ml @ 200 mls/hr 1X ONCE IV Last administered on 04/28/19at 19:19; Start 04/28/19 at 18:30; Stop 04/28/19 at 18:59; Status DC Acetaminophen (Tylenol) 1,000 mg 1X ONCE PO ; Start 04/28/19 at 18:45; Stop 04/28/19 at 18:46; Status DC Vancomycin HCl 2 gm/Sodium Chloride 500 ml @ 250 mls/hr 1X ONCE IV Last administered on 04/28/19at 19:20; Start 04/28/19 at 19:00; Stop 04/28/19 at 20:59; Status DC Sodium Chloride 1,000 ml @ 1,000 mls/hr 1X ONCE IV Last administered on 04/28/19at 19:47; Start 04/28/19 at 19:45; Stop 04/28/19 at 20:44; Status DC Piperacillin Sod/ Tazobactam Sod 3.375 gm/Sodium Chloride 50 ml @ 100 mls/hr Q6HRS IV ; Start 04/29/19 at 00:00; Stop 04/28/19 at 21:38; Status DC Vancomycin HCl 1.25 gm/Sodium Chloride 250 ml @ 167 mls/hr Q24H IV ; Start 04/29/19 at 20:00 Vancomycin HCl (Vancomycin Trough Level) 1 each 1X ONCE MC ; Start 04/30/19 at 19:30; Stop 04/30/19 at 19:31 Ondansetron HCl (Zofran) 4 mg PRN Q8HRS PRN IV NAUSEA/VOMITING; Start 04/28/19 at 21:30; Stop 04/29/19 at 08:10; Status DC Sodium Chloride 1,000 ml @ 125 mls/hr Q8H IV Last administered on 04/28/19at 23:30; Start 04/28/19 at 21:30; Stop 04/29/19 at 21:29 Acetaminophen (Tylenol) 650 mg PRN Q4HRS PRN PO FEVER; Start 04/28/19 at 21:30; Stop 04/29/19 at 21:29 Vancomycin HCl (Vanco Per Pharmacy) 1 each PRN DAILY PRN MC SEE COMMENTS; Sta rt 04/28/19 at 21:30; Status UNV Piperacillin Sod/ Tazobactam Sod 4.5 gm/Sodium Chloride 100 ml @ 200 mls/hr Q6HRS IV Last administered on 04/29/19at 05:53; Start 04/29/19 at 00:00 Ondansetron HCl (Zofran) 4 mg PRN Q6HRS PRN IV NAUSEA/VOMITING; Start 04/29/19 at 08:15 Aspirin (Children'S Aspirin) 81 mg DAILY PO Last administered on 04/29/19at 09:11; Start 04/29/19 at 09:00 Atorvastatin Calcium (Lipitor) 40 mg QHS PO ; Start 04/29/19 at 21:00 Lactobacillus Rhamnosus (Culturelle) 1 cap BID PO Last administered on 04/29/19at 09:11; Start 04/29/19 at 09:00 Lorazepam (Ativan) 0.25 mg PRN Q6HRS PRN PO ANXIETY / AGITATION; Start 04/29/19 at 08:15 Vitamin D (Vitamin D3) 5,000 unit DAILY PO Last administered on 04/29/19at 09:11; Start 04/29/19 at 09:00 Doxycycline Hyclate (Vibra-Tab) 100 mg BID PO Last administered on 04/29/19at 09:12; Start 04/29/19 at 09:00 Active Scripts Active Levsin (Hyoscyamine Sulfate) 0.125 Mg Tablet 0.125 Mg PO QID Cephalexin 500 Mg Tablet 1 Tab PO TID Diflucan (Fluconazole) 150 Mg Tablet 1 Tab PO ONCE Take on 06/14/18 Augmentin 875-125 Tablet (Amoxicillin/Potassium Clav) 1 Each Tablet 1 Tab PO BID Culturelle (Lactobacillus Rhamnosus Gg) 1 Each Cap.sprink 1 Cap PO BID 14 Days Vitamin D3 (Cholecalciferol (Vitamin D3)) 5,000 Unit Tablet 1 Tab PO DAILY Reported Lorazepam 0.5 Mg Tablet 0.25 Mg PO PRN Q6HRS PRN NITROGLYCERIN SubLingual (Nitroglycerin) 0.4 Mg Tab.subl 0.4 Mg SL PRN Q5MIN PRN Paroxetine Hcl 20 Mg Tablet 20 Mg PO DAILY Tamsulosin Hcl 0.4 Mg Cap.er.24h 0.4 Mg PO DAILY Losartan Potassium (Losartan Potassium) 25 Mg Tablet 25 Mg PO DAILY Toprol Xl (Metoprolol Succinate) 50 Mg Tab.er.24h 50 Mg PO DAILY Aspirin 81 Mg Tab.chew 81 Mg PO DAILY Lipitor (Atorvastatin Calcium) 40 Mg Tablet 40 Mg PO DAILY Allergies Allergies: Coded Allergies: No Known Drug Allergies (Unverified , 05/24/14) ROS Review of System neg 14 pt currently reviewed with him Physical Exam General: Alert, Oriented X3, Cooperative, No acute distress HEENT: Atraumatic, PERRLA, EOMI Lungs: Clear to auscultation, Normal air movement Heart: S1S2, RRR, no thrills, no rubs, no gallops, no murmurs Cardiovascular: S1, S2 Abdomen: Normal bowel sounds, Soft, No tenderness, No hepatosplenomegaly, No masses Male Genitals Exam: normal genitalia, normal prostate Rectal Exam: not examined PELVIC: Nml ext genitalia Extremities: No clubbing, No cyanosis, No edema, Normal pulses, No tenderness/swelling Skin: No rashes, No breakdown, No significant lesion Neuro: Normal gait, Normal speech, Strength at 5/5 X4 ext, Normal tone, S ensation intact, Cranial nerves 3-12 NL, Reflexes 2+ Psych/Mental Status: Mental status NL, Mood NL Vitals Vitals Vital Signs Date Time Temp Pulse Resp B/P (MAP) Pulse Ox O2 Delivery O2 Flow Rate FiO2 04/29/19 08:00 Nasal Cannula 2.0 04/29/19 07:00 98.0 59 18 99/53 (68) 97 98.0 Labs Labs Laboratory Tests Test 04/28/19 18:17 04/28/19 18:23 04/28/19 18:29 04/28/19 18:56 Prothrombin Time 13.7 SEC (11.7-14.0) Prothromb Time International Ratio 1.1 (0.8-1.1) Activated Partial Thromboplast Time 25 SEC (24-38) Influenza Type A Antigen Negative (NEGATIVE) Influenza Type B Antigen Negative (NEGATIVE) Urine Collection Type U cath Urine Color Yellow Urine Clarity Clear Urine pH 5.5 Urine Specific [place] 1.015 Urine Protein Negative mg/dL (NEG-TRACE) Urine Glucose (UA) Negative mg/dL (NEG) Urine Ketones (Stick) Negative mg/dL (NEG) Urine Blood Negative (NEG) Urine Nitrite Negative (NEG) Urine Bilirubin Negative (NEG) Urine Urobilinogen Dipstick 0.2 mg/dL (0.2 mg/dL) Urine Leukocyte Esterase Small (NEG) Urine RBC 0 /HPF (0-2) Urine WBC 5-10 /HPF (0-4) Urine Squamous Epithelial Cells Occ /LPF Urine Bacteria Few /HPF (0-FEW) Urine Mucus Mod /LPF White Blood Count 9.3 x10^3/uL (4.0-11.0) Red Blood Count 3.94 x10^6/uL (4.30-5.70) Hemoglobin 13.1 g/dL (13.0-17.5) Hematocrit 38.8 % (39.0-53.0) Mean Corpuscular Volume 99 fL (79-100) Mean Corpuscular Hemoglobin 33 pg (25-35) Mean Corpuscular Hemoglobin Concent 34 g/dL (31-37) Red Cell Distribution Width 14.9 % (11.5-14.5) Platelet Count 100 x10^3/uL (140-400) Neutrophils (%) (Auto) 84 % (31-73) Lymphocytes (%) (Auto) 8 % (24-48) Monocytes (%) (Auto) 7 % (0-9) Eosinophils (%) (Auto) 0 % (0-3) Basophils (%) (Auto) 0 % (0-3) Neutrophils # (Auto) 7.8 x10^3/uL (1.8-7.7) Lymphocytes # (Auto) 0.8 x10^3/uL (1.0-4.8) Monocytes # (Auto) 0.7 x10^3/uL (0.0-1.1) Eosinophils # (Auto) 0.0 x10^3/uL (0.0-0.7) Basophils # (Auto) 0.0 x10^3/uL (0.0-0.2) Sodium Level 144 mmol/L (136-145) Potassium Level 3.7 mmol/L (3.5-5.1) Chloride Level 109 mmol/L (98-107) Carbon Dioxide Level 25 mmol/L (21-32) Anion Gap 10 (6-14) Blood Urea Nitrogen 14 mg/dL (8-26) Creatinine 1.3 mg/dL (0.7-1.3) Estimated GFR (Cockcroft-Gault) 53.3 Glucose Level 103 mg/dL (70-99) Lactic Acid Level 2.0 mmol/L (0.4-2.0) Calcium Level 9.8 mg/dL (8.5-10.1) Total Bilirubin 0.9 mg/dL (0.2-1.0) Direct Bilirubin 0.2 mg/dL (0.0-0.2) Aspartate Amino Transf (AST/SGOT) 16 U/L (15-37) Alanine Aminotransferase (ALT/SGPT) 14 U/L (16-63) Alkaline Phosphatase 118 U/L (46-116) Creatine Kinase 81 U/L (39-308) Total Protein 6.3 g/dL (6.4-8.2) Albumin 3.2 g/dL (3.4-5.0) Procalcitonin 4.12 ng/mL (0.00-0.10) Test 04/28/19 22:15 04/29/19 02:47 Lactic Acid Level 1.6 mmol/L (0.4-2.0) White Blood Count 12.1 x10^3/uL (4.0-11.0) Red Blood Count 3.46 x10^6/uL (4.30-5.70) Hemoglobin 11.4 g/dL (13.0-17.5) Hematocrit 33.9 % (39.0-53.0) Mean Corpuscular Volume 98 fL (79-100) Mean Corpuscular Hemoglobin 33 pg (25-35) Mean Corpuscular Hemoglobin Concent 34 g/dL (31-37) Red Cell Distribution Width 15.0 % (11.5-14.5) Platelet Count 77 x10^3/uL (140-400) Neutrophils (%) (Auto) 80 % (31-73) Lymphocytes (%) (Auto) 13 % (24-48) Monocytes (%) (Auto) 7 % (0-9) Eosinophils (%) (Auto) 0 % (0-3) Basophils (%) (Auto) 0 % (0-3) Neutrophils # (Auto) 9.6 x10^3/uL (1.8-7.7) Lymphocytes # (Auto) 1.6 x10^3/uL (1.0-4.8) Monocytes # (Auto) 0.8 x10^3/uL (0.0-1.1) Eosinophils # (Auto) 0.0 x10^3/uL (0.0-0.7) Basophils # (Auto) 0.0 x10^3/uL (0.0-0.2) Sodium Level 146 mmol/L (136-145) Potassium Level 3.9 mmol/L (3.5-5.1) Chloride Level 113 mmol/L (98-107) Carbon Dioxide Level 24 mmol/L (21-32) Anion Gap 9 (6-14) Blood Urea Nitrogen 14 mg/dL (8-26) Creatinine 1.3 mg/dL (0.7-1.3) Estimated GFR (Cockcroft-Gault) 53.3 Glucose Level 96 mg/dL (70-99) Calcium Level 8.9 mg/dL (8.5-10.1) Mycoplasma Serology (LAB) Negative (NEGATIVE) Laboratory Tests Test 04/28/19 18:17 04/28/19 18:23 04/28/19 18:29 04/28/19 18:56 Prothrombin Time 13.7 SEC (11.7-14.0) Prothromb Time International Ratio 1.1 (0.8-1.1) Activated Partial Thromboplast Time 25 SEC (24-38) Influenza Type A Antigen Negative (NEGATIVE) Influenza Type B Antigen Negative (NEGATIVE) Urine Collection Type U cath Urine Color Yellow Urine Clarity Clear Urine pH 5.5 Urine Specific [place] 1.015 Urine Protein Negative mg/dL (NEG-TRACE) Urine Glucose (UA) Negative mg/dL (NEG) Urine Ketones (Stick) Negative mg/dL (NEG) Urine Blood Negative (NEG) Urine Nitrite Negative (NEG) Urine Bilirubin Negative (NEG) Urine Urobilinogen Dipstick 0.2 mg/dL (0.2 mg/dL) Urine Leukocyte Esterase Small (NEG) Urine RBC 0 /HPF (0-2) Urine WBC 5-10 /HPF (0-4) Urine Squamous Epithelial Cells Occ /LPF Urine Bacteria Few /HPF (0-FEW) Urine Mucus Mod /LPF White Blood Count 9.3 x10^3/uL (4.0-11.0) Red Blood Count 3.94 x10^6/uL (4.30-5.70) Hemoglobin 13.1 g/dL (13.0-17.5) Hematocrit 38.8 % (39.0-53.0) Mean Corpuscular Volume 99 fL (79-100) Mean Corpuscular Hemoglobin 33 pg (25-35) Mean Corpuscular Hemoglobin Concent 34 g/dL (31-37) Red Cell Distribution Width 14.9 % (11.5-14.5) Platelet Count 100 x10^3/uL (140-400) Neutrophils (%) (Auto) 84 % (31-73) Lymphocytes (%) (Auto) 8 % (24-48) Monocytes (%) (Auto) 7 % (0-9) Eosinophils (%) (Auto) 0 % (0-3) Basophils (%) (Auto) 0 % (0-3) Neutrophils # (Auto) 7.8 x10^3/uL (1.8-7.7) Lymphocytes # (Auto) 0.8 x10^3/uL (1.0-4.8) Monocytes # (Auto) 0.7 x10^3/uL (0.0-1.1) Eosinophils # (Auto) 0.0 x10^3/uL (0.0-0.7) Basophils # (Auto) 0.0 x10^3/uL (0.0-0.2) Sodium Level 144 mmol/L (136-145) Potassium Level 3.7 mmol/L (3.5-5.1) Chloride Level 109 mmol/L (98-107) Carbon Dioxide Level 25 mmol/L (21-32) Anion Gap 10 (6-14) Blood Urea Nitrogen 14 mg/dL (8-26) Creatinine 1.3 mg/dL (0.7-1.3) Estimated GFR (Cockcroft-Gault) 53.3 Glucose Level 103 mg/dL (70-99) Lactic Acid Level 2.0 mmol/L (0.4-2.0) Calcium Level 9.8 mg/dL (8.5-10.1) Total Bilirubin 0.9 mg/dL (0.2-1.0) Direct Bilirubin 0.2 mg/dL (0.0-0.2) Aspartate Amino Transf (AST/SGOT) 16 U/L (15-37) Alanine Aminotransferase (ALT/SGPT) 14 U/L (16-63) Alkaline Phosphatase 118 U/L (46-116) Creatine Kinase 81 U/L (39-308) Total Protein 6.3 g/dL (6.4-8.2) Albumin 3.2 g/dL (3.4-5.0) Procalcitonin 4.12 ng/mL (0.00-0.10) Test 04/28/19 22:15 04/29/19 02:47 Lactic Acid Level 1.6 mmol/L (0.4-2.0) White Blood Count 12.1 x10^3/uL (4.0-11.0) Red Blood Count 3.46 x10^6/uL (4.30-5.70) Hemoglobin 11.4 g/dL (13.0-17.5) Hematocrit 33.9 % (39.0-53.0) Mean Corpuscular Volume 98 fL (79-100) Mean Corpuscular Hemoglobin 33 pg (25-35) Mean Corpuscular Hemoglobin Concent 34 g/dL (31-37) Red Cell Distribution Width 15.0 % (11.5-14.5) Platelet Count 77 x10^3/uL (140-400) Neutrophils (%) (Auto) 80 % (31-73) Lymphocytes (%) (Auto) 13 % (24-48) Monocytes (%) (Auto) 7 % (0-9) Eosinophils (%) (Auto) 0 % (0-3) Basophils (%) (Auto) 0 % (0-3) Neutrophils # (Auto) 9.6 x10^3/uL (1.8-7.7) Lymphocytes # (Auto) 1.6 x10^3/uL (1.0-4.8) Monocytes # (Auto) 0.8 x10^3/uL (0.0-1.1) Eosinophils # (Auto) 0.0 x10^3/uL (0.0-0.7) Basophils # (Auto) 0.0 x10^3/uL (0.0-0.2) Sodium Level 146 mmol/L (136-145) Potassium Level 3.9 mmol/L (3.5-5.1) Chloride Level 113 mmol/L (98-107) Carbon Dioxide Level 24 mmol/L (21-32) Anion Gap 9 (6-14) Blood Urea Nitrogen 14 mg/dL (8-26) Creatinine 1.3 mg/dL (0.7-1.3) Estimated GFR (Cockcroft-Gault) 53.3 Glucose Level 96 mg/dL (70-99) Calcium Level 8.9 mg/dL (8.5-10.1) Mycoplasma Serology (LAB) Negative (NEGATIVE) VTE Prophylaxis Ordered VTE Prophylaxis Devices: Yes VTE Pharmacological Prophylaxi: Yes Assessment/Plan Assessment/Plan Fevers POA< resolved Sepsis, with hypotension Atypical viral infection? Enceph in the background of fevers, transient, resolved upon admission PLAN: Check strep and mycoplasma since CXR suggestive of atypical infection MAy dc vanc, cont zosyn for now, add doxy Reg diet Hold BB and BP meds at home May dec NS to 100cc hr Check tsh and cortisol AM for completion sake re hypotension MOntior for recurrence of fevers, if persists, consider ID PT.OT Possible home tmr pending above tests and overnight course AMY PENNY MD Apr 29, 2019 10:47
[2019-04-29 15:03] VITALS: BP 104/42
[2019-04-29] MEDS: IV NORMAL SALINE 1000ML BAG 1,000 ML IV SCH ×2 (15:51→20:34)
--- NOTE | 2019-04-29 16:12 | NUR ---
SW following pt for dc planning. Chart reviewed and discussed with RN. Pt's family requested assistance with completing AD. SW met with pt and pt was able to name his niece, Judy and his nephew, Terrell as his DPOA'S and signed form. PT recommends SNU, OT recommends home health. As Pt is managed medicare, SW will await for more assessment from PT. Pt voiced he would like to go as soon as possible and reported his nephew, Terrell takes care of him really well. Pt is currently on 02 and reported he does not use 02 at home. Pt's niece, Adriana Valadez [phone] in room and discussed pt had used a home health agency before and would like to use them again. Plan 1. SW assisted pt in completing AD. Pt is provided with original and copies to take home. A copy also placed on pt's chart. 2. Per chart review, pt had used [facility], , fax: [phone] last year. Will notify Va[facility]udandrae nurse navigator. 3. SW will continue to follow pt for dc planning.
[2019-04-29 19:00] VITALS: BP 131/60
[2019-04-29] MEDS ORDERED: VANCOMYCIN 1.25 GM in IV NORMAL SALINE 250ML 250 ML IV SCH (20:00)
[2019-04-29] MEDS ORDERED: ATORVASTATIN CALCIUM 40 MG TABLET. PO SCH (21:00)
[2019-04-29 22:57] VITALS: BP 147/60
[2019-04-30 03:00] VITALS: BP 118/79
[2019-04-30] MEDS: IV NORMAL SALINE 1000ML BAG 1,000 ML IV SCH ×2 (03:02→10:12)
[2019-04-30] MEDS: PIPERACILLIN/TAZOBACTAM 4.5 GM in IV NORMAL SALINE 100ML 100 ML IV SCH ×2 (06:16→11:35)
[2019-04-30 07:00] VITALS: BP 135/97
[2019-04-30] MEDS: CHOLECALCIFEROL (VITAMIN D3) 5,000 UNIT CAPSULE PO SCH (08:17)
[2019-04-30] MEDS: DOXYCYCLINE HYCLATE 100 MG TABLET PO SCH (08:18)
[2019-04-30] MEDS: LACTOBACILLUS RHAMNOSUS GG 1 CAPSULE. PO SCH (08:18)
[2019-04-30] MEDS: ASPIRIN CHEWABLE 81 MG TABLET. PO SCH (08:18)
[2019-04-30] MEDS ORDERED: DOXY100T PO (09:59)
--- NOTE | 2019-04-30 10:00 | SNU/HH DC ---
DISCHARGE WITH HOME HEALTH DISCHARGE INFORMATION: Discharge Date: Apr 30, 2019 Final Diagnosis: Problems Medical Problems: (1) Fever Status: Acute Condition on Discharge: Stable CODE STATUS: Code Status: Full HOME HEALTH: Face to Face: I certify this patient is under my care and that I, or a nurse practitioner or physician's automobile mechanic assistant working with me, had a face to face encounter that meets the physician face to face encounter requirements with this patient on []. 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 PCP 4 weeks TREATMENT/EQUIPMENT ORDERS: Adaptive Equipment Issued: None CERTIFICATION STATEMENT: Certification Statement: Certification Statement: Based on the above finding, I certify that this patient is confined to the home and needs intermittent [place] [facility] care, physical therapy and/or speech therapy, or continues to need occupational therapy.~ This patient is under my care, and I have initiated the establishment of the plan of care.~ This patient will be followed by myself or a community physician who will periodically review the plan of care. Home Meds Active Scripts Doxycycline Hyclate (DOXYCYCLINE HYCLATE) 100 Mg Tablet, 100 MG PO BID for fevers for 7 Days, #14 TAB Prov:AMY PENNY MD 04/30/19 Hyoscyamine Sulfate (LEVSIN) 0.125 Mg Tablet, 0.125 MG PO QID, #30 TAB Prov:SOLANGE BECERRIL DO 07/29/18 Fluconazole (DIFLUCAN) 150 Mg Tablet, 1 TAB PO ONCE, #1 TAB 0 Refills Take on 06/14/18 Prov:LOLLY CASE DO 06/08/18 Lactobacillus Rhamnosus Gg (CULTURELLE) 1 Each Cap.sprink, 1 CAP PO BID for 14 Days, #28 CAP Prov:SIDNEY MORALES MD 11/28/17 Cholecalciferol (Vitamin D3) (VITAMIN D3) 5,000 Unit Tablet, 1 TAB PO DAILY, #30 TAB 2 Refills Prov:ANDREA RAHMAN MD 12/21/15 Reported Medications Lorazepam (LORAZEPAM) 0.5 Mg Tablet, 0.25 MG PO PRN Q6HRS PRN for ANXIETY / AGITATION, TAB 10/20/17 Nitroglycerin (NITROGLYCERIN SubLingual) 0.4 Mg Tab.subl, 0.4 MG SL PRN Q5MIN PRN for CHEST PAIN, BOTTLE 10/20/17 Paroxetine Hcl (PAROXETINE HCL) 20 Mg Tablet, 20 MG PO DAILY, TAB 10/20/17 Tamsulosin Hcl (TAMSULOSIN HCL) 0.4 Mg Cap.er.24h, 0.4 MG PO DAILY, TAB 10/20/17 Aspirin (ASPIRIN) 81 Mg Tab.chew, 81 MG PO DAILY, TAB.CHEW 05/25/14 Atorvastatin Calcium (LIPITOR) 40 Mg Tablet, 40 MG PO DAILY for FOR CHOLESTEROL, #30 TAB 0 Refills 05/25/14 Discontinued Reported Medications Losartan Potassium (LOSARTAN POTASSIUM ) 25 Mg Tablet, 25 MG PO DAILY, TAB 10/20/17 Metoprolol Succinate (TOPROL XL) 50 Mg Tab.er.24h, 50 MG PO DAILY for FOR HYPERTENSION, #30 TAB 0 Refills 05/25/14 Discontinued Scripts Cephalexin (CEPHALEXIN) 500 Mg Tablet, 1 TAB PO TID, #30 TAB Prov:SOLANGE BECERRIL DO 07/29/18 Amoxicillin/Potassium Clav (AUGMENTIN 875-125 TABLET) 1 Each Tablet, 1 TAB PO BID, #14 TAB Prov:SIDNEY MORALES MD 11/28/17 AMY PENNY MD Apr 30, 2019 10:00
--- NOTE | 2019-04-30 10:03 | PDOC3 ---
Discharge Summary Visit Information Date of Admission: Apr 28, 2019 Date of Discharge: Apr 30, 2019 Admitting Diagnosis Comment: Fevers POA< resolved Sepsis, with hypotension Atypical viral infection? Enceph in the background of fevers, transient, resolved upon admission Final Diagnosis Problems Medical Problems: (1) Fever Status: Acute Brief Hospital Course Allergies Allergies Coded Allergies Type Severity Reaction Last Updated Verified No Known Drug Allergies 05/24/14 No Vital Signs Vital Signs Date Time Temp Pulse Resp B/P (MAP) Pulse Ox O2 Delivery O2 Flow Rate FiO2 04/30/19 07:00 98.7 66 16 135/97 (110) 96 Room Air 98.7 04/29/19 20:00 2.0 Lab Results Laboratory Tests Test 04/28/19 18:17 04/28/19 18:23 04/28/19 18:29 04/28/19 18:56 Prothrombin Time 13.7 SEC (11.7-14.0) Prothromb Time International Ratio 1.1 (0.8-1.1) Activated Partial Thromboplast Time 25 SEC (24-38) Influenza Type A Antigen Negative (NEGATIVE) Influenza Type B Antigen Negative (NEGATIVE) Urine Collection Type U cath Urine Color Yellow Urine Clarity Clear Urine pH 5.5 Urine Specific [place] 1.015 Urine Protein Negative mg/dL (NEG-TRACE) Urine Glucose (UA) Negative mg/dL (NEG) Urine Ketones (Stick) Negative mg/dL (NEG) Urine Blood Negative (NEG) Urine Nitrite Negative (NEG) Urine Bilirubin Negative (NEG) Urine Urobilinogen Dipstick 0.2 mg/dL (0.2 mg/dL) Urine Leukocyte Esterase Small (NEG) Urine RBC 0 /HPF (0-2) Urine WBC 5-10 /HPF (0-4) Urine Squamous Epithelial Cells Occ /LPF Urine Bacteria Few /HPF (0-FEW) Urine Mucus Mod /LPF White Blood Count 9.3 x10^3/uL (4.0-11.0) Red Blood Count 3.94 x10^6/uL (4.30-5.70) Hemoglobin 13.1 g/dL (13.0-17.5) Hematocrit 38.8 % (39.0-53.0) Mean Corpuscular Volume 99 fL (79-100) Mean Corpuscular Hemoglobin 33 pg (25-35) Mean Corpuscular Hemoglobin Concent 34 g/dL (31-37) Red Cell Distribution Width 14.9 % (11.5-14.5) Platelet Count 100 x10^3/uL (140-400) Neutrophils (%) (Auto) 84 % (31-73) Lymphocytes (%) (Auto) 8 % (24-48) Monocytes (%) (Auto) 7 % (0-9) Eosinophils (%) (Auto) 0 % (0-3) Basophils (%) (Auto) 0 % (0-3) Neutrophils # (Auto) 7.8 x10^3/uL (1.8-7.7) Lymphocytes # (Auto) 0.8 x10^3/uL (1.0-4.8) Monocytes # (Auto) 0.7 x10^3/uL (0.0-1.1) Eosinophils # (Auto) 0.0 x10^3/uL (0.0-0.7) Basophils # (Auto) 0.0 x10^3/uL (0.0-0.2) Sodium Level 144 mmol/L (136-145) Potassium Level 3.7 mmol/L (3.5-5.1) Chloride Level 109 mmol/L (98-107) Carbon Dioxide Level 25 mmol/L (21-32) Anion Gap 10 (6-14) Blood Urea Nitrogen 14 mg/dL (8-26) Creatinine 1.3 mg/dL (0.7-1.3) Estimated GFR (Cockcroft-Gault) 53.3 Glucose Level 103 mg/dL (70-99) Lactic Acid Level 2.0 mmol/L (0.4-2.0) Calcium Level 9.8 mg/dL (8.5-10.1) Total Bilirubin 0.9 mg/dL (0.2-1.0) Direct Bilirubin 0.2 mg/dL (0.0-0.2) Aspartate Amino Transf (AST/SGOT) 16 U/L (15-37) Alanine Aminotransferase (ALT/SGPT) 14 U/L (16-63) Alkaline Phosphatase 118 U/L (46-116) Creatine Kinase 81 U/L (39-308) Total Protein 6.3 g/dL (6.4-8.2) Albumin 3.2 g/dL (3.4-5.0) Procalcitonin 4.12 ng/mL (0.00-0.10) Test 04/28/19 22:15 04/29/19 02:47 04/30/19 03:20 Lactic Acid Level 1.6 mmol/L (0.4-2.0) White Blood Count 12.1 x10^3/uL (4.0-11.0) Red Blood Count 3.46 x10^6/uL (4.30-5.70) Hemoglobin 11.4 g/dL (13.0-17.5) Hematocrit 33.9 % (39.0-53.0) Mean Corpuscular Volume 98 fL (79-100) Mean Corpuscular Hemoglobin 33 pg (25-35) Mean Corpuscular Hemoglobin Concent 34 g/dL (31-37) Red Cell Distribution Width 15.0 % (11.5-14.5) Platelet Count 77 x10^3/uL (140-400) Neutrophils (%) (Auto) 80 % (31-73) Lymphocytes (%) (Auto) 13 % (24-48) Monocytes (%) (Auto) 7 % (0-9) Eosinophils (%) (Auto) 0 % (0-3) Basophils (%) (Auto) 0 % (0-3) Neutrophils # (Auto) 9.6 x10^3/uL (1.8-7.7) Lymphocytes # (Auto) 1.6 x10^3/uL (1.0-4.8) Monocytes # (Auto) 0.8 x10^3/uL (0.0-1.1) Eosinophils # (Auto) 0.0 x10^3/uL (0.0-0.7) Basophils # (Auto) 0.0 x10^3/uL (0.0-0.2) Sodium Level 146 mmol/L (136-145) Potassium Level 3.9 mmol/L (3.5-5.1) Chloride Level 113 mmol/L (98-107) Carbon Dioxide Level 24 mmol/L (21-32) Anion Gap 9 (6-14) Blood Urea Nitrogen 14 mg/dL (8-26) Creatinine 1.3 mg/dL (0.7-1.3) Estimated GFR (Cockcroft-Gault) 53.3 Glucose Level 96 mg/dL (70-99) Calcium Level 8.9 mg/dL (8.5-10.1) Mycoplasma Serology (LAB) Negative (NEGATIVE) Thyroid Stimulating Hormone (TSH) 2.684 uIU/mL (0.358-3.74) Laboratory Tests Test 04/30/19 03:20 Thyroid Stimulating Hormone (TSH) 2.684 uIU/mL (0.358-3.74) Brief Hospital Course Mr. Mcadams is a 78 old male who lives with nephew, admitted bec of confusion and febrile epsidoes that resolved after IVF hydration and empiric abx at ER, Work up neg, MAybe atypical infection on CXR but he lacks strong uri sxs. No diarrhea, no rash, TSH normal, Procal was 4 , rpt is pending, WBC normal then came up to 12 (no steroids) but rpt is pending. HE clinically looks better and back to baseline PT recs snu, he opts for HH IF labs ok, HH today NO consults needed, no proc (LP) needed Time 31 mins Carlos Enrique daniels Discharge Information Condition at Discharge: Improved, Stable Disposition/Orders: D/C to Home w/ HH Scheduled Aspirin (Aspirin) 81 Mg Tab.chew, 81 MG PO DAILY, (Reported) Entered as Reported by: JOE JUNIOR on 05/25/14227 Last Action: Continued on 04/29/19810 by AMY PENNY Atorvastatin Calcium (Lipitor) 40 Mg Tablet, 40 MG PO DAILY for FOR CHOLESTEROL, #30 Ref 0 (Reported) Entered as Reported by: JOE JUNIOR on 05/25/14224 Last Action: Continued on 04/29/19810 by AMY PENNY Cholecalciferol (Vitamin D3) (Vitamin D3) 5,000 Unit Tablet, 1 TAB PO DAILY, #30 Ref 2 Prescribed by: ANDREA RAHMAN on 12/21/15 1421 Last Action: Converted on 04/29/19810 by AMY PENNY Doxycycline Hyclate (Doxycycline Hyclate) 100 Mg Tablet, 100 MG PO BID for fevers for 7 Days, #14 Prescribed by: AMY PENNY on 04/30/19 0959 Fluconazole (Diflucan) 150 Mg Tablet, 1 TAB PO ONCE, #1 Ref 0 Take on 06/14/18 Prescribed by: LOLLY CASE D.O. on 06/08/182235 Last Action: HELD on 04/29/19810 by AMY PENNY Hyoscyamine Sulfate (Levsin) 0.125 Mg Tablet, 0.125 MG PO QID, #30 Prescribed by: SOLANGE BECERRIL DO on 07/29/18114 Last Action: Reviewed on 04/29/19810 by AMY PENNY Lactobacillus Rhamnosus Gg (Culturelle) 1 Each Cap.sprink, 1 CAP PO BID for 14 Days, #28 Prescribed by: SIDNEY MORALES on 11/28/17 1220 Last Action: Continued on 04/29/19810 by AMY PENNY Paroxetine Hcl (Paroxetine Hcl) 20 Mg Tablet, 20 MG PO DAILY, (Reported) Entered as Reported by: Fredy Dee on 10/20/17148 Last Action: HELD on 04/29/19810 by AMY PENNY Tamsulosin Hcl (Tamsulosin Hcl) 0.4 Mg Cap.er.24h, 0.4 MG PO DAILY, (Reported) Entered as Reported by: Fredy Dee on 10/20/17148 Last Action: HELD on 04/29/19810 by AMY PENNY Scheduled PRN Lorazepam (Lorazepam) 0.5 Mg Tablet, 0.25 MG PO PRN Q6HRS PRN for ANXIETY / AGITATION, (Reported) Entered as Reported by: Fredy Dee on 10/20/17148 Last Action: Continued on 04/29/19810 by AMY PENNY Nitroglycerin (NITROGLYCERIN SubLingual) 0.4 Mg Tab.subl, 0.4 MG SL PRN Q5MIN PRN for CHEST PAIN, (Reported) Entered as Reported by: Fredy Dee on 10/20/17148 Last Action: HELD on 04/29/19810 by AMY PENNY Discontinued Medications Amoxicillin/Potassium Clav (Augmentin 875-125 Tablet) 1 Each Tablet, 1 TAB PO BID, #14 Prescribed by: SIDNEY MORALES on 11/28/17 1220 Last Action: HELD on 04/29/19810 by AMY PENNY Cephalexin (Cephalexin) 500 Mg Tablet, 1 TAB PO TID, #30 Prescribed by: SOLANGE BECERRIL DO on 07/29/18 0115 Last Action: HELD on 04/29/19810 by AMY PENNY Losartan Potassium (Losartan Potassium ) 25 Mg Tablet, 25 MG PO DAILY, (Reported) Entered as Reported by: Fredy Dee on 10/20/17 0149 Last Action: HELD on 04/29/19810 by AMY PENNY Metoprolol Succinate (Toprol Xl) 50 Mg Tab.er.24h, 50 MG PO DAILY for FOR HYPERTENSION, #30 Ref 0 (Reported) Entered as Reported by: JOE JUNIOR on 05/25/14227 Last Action: HELD on 04/29/19810 by AMY DILLARD MD Apr 30, 2019 10:03
[2019-04-30 10:25] LABS: BASO % 1 % (0-3); EOS # 0.1 x10^3/uL (0.0-0.7); EOS % 2 % (0-3); HEMATOCRIT 35.7 % (39.0-53.0); HEMOGLOBIN 11.9 g/dL (13.0-17.5); LYMPH # 1.4 x10^3/uL (1.0-4.8); LYMPH % 18 % (24-48); MEAN CORPUSCULAR HEMOGLOBIN 33 pg (25-35); MEAN CORPUSCULAR HGB CONC 33 g/dL (31-37); MEAN CORPUSCULAR VOLUME 99 fL (79-100); MONO # 0.7 x10^3/uL (0.0-1.1); MONO % 8 % (0-9); NEUT # 5.8 x10^3/uL (1.8-7.7); NEUT % 72 % (31-73); PLATELET COUNT 88 x10^3/uL (140-400); RED BLOOD COUNT 3.62 x10^6/uL (4.30-5.70); RED CELL DISTRIBUTION WIDTH 15.5 % (11.5-14.5); WHITE BLOOD COUNT 8.1 x10^3/uL (4.0-11.0)
--- NOTE | 2019-04-30 10:44 | NUR ---
SS following up with discharge planning. Discharge orders received for [facility], ; fax [phone]. SS phoned and faxed discharge orders to [facility]. Pt's RN notified.
[2019-04-30 10:46] VITALS: BP 130/84
[2019-04-30 15:00] VITALS: BP 128/80
--- NOTE | 2019-04-30 16:47 | NUR ---
Discharge Note: PT DISCHARGED HOME WITH [facility]. PT LEFT FACILITY VIA PRIVATE VEHICLE WITH [facility] AT 1640. PT STABLE AND ALERT UPON DISCHARGE. PT PIV REMOVED FROM R FA WITHOUT COMPLICATIONS, BANDAGE APPLIED. PT EDUCATED ABOUT DISCHARGE INSTRUCTIONS, DISCHARGE MEDICATIONS, AND FOLLOW-UP INSTRUCTIONS. PT EDUCATED ABOUT SIGN/SYMPTOMS OF SEPSIS OR WORSENING INFECTION. NO CONCERNS VOICED AT THIS TIME. PT LEFT WITH ALL PERSONAL BELONGINGS. ALFIE FRANK [address] Discharge instructions and discharge home medications reviewed with Patient and a copy given. All questions have been answered and understanding verbalized.
== END 2019-04-30 16:55 | disposition home health service (06) | DRG 872 ==
LOC: ER 18:05 → 5 SOUTH 21:11
PROVIDERS: ADMIT Internal Medicine; ATTEND Internal Medicine
DX: A41.9 Sepsis, unspecified organism (principal); J81.1 Chronic pulmonary edema; G93.49 Other encephalopathy; A81.9 Atypical virus infection of central nervous system, unspecified; B34.9 Viral infection, unspecified; E78.00 Pure hypercholesterolemia, unspecified; E78.5 Hyperlipidemia, unspecified; E86.0 Dehydration; F41.9 Anxiety disorder, unspecified; I10 Essential (primary) hypertension; M19.90 Unspecified osteoarthritis, unspecified site; I25.10 Atherosclerotic heart disease of native coronary artery without angina pectoris; I48.91 Unspecified atrial fibrillation; N40.0 Benign prostatic hyperplasia without lower urinary tract symptoms; Z79.899 Other long term (current) drug therapy; Z82.49 Family history of ischemic heart disease and other diseases of the circulatory system; Z95.1 Presence of aortocoronary bypass graft; Z79.82 Long term (current) use of aspirin
CPT/HCPCS: 36415; 70450; 71045; 80048; 80076; 81001; 82533; 82550; 83605; 84145; 84443; 85025; 85610; 85730; 86738; 87040; 87086; 87449; 87804; 93005; 96361; 96365; 96366; 96368; J2543; J3370; J7030; J7040; 97110; 97116; 97530; 97535; 99291-25; G0378

== ENCOUNTER 2020-11-02 13:44 | Emergency (ER) | payer MEDICARE ==
[~2020-11-02] VITALS: Ht 170.2 cm; Wt 79.5 kg
[~2020-11-02 13:44] MED LIST changes: -LISI-334 PO; +LISI20TA18 PO
[2020-11-02 14:41] LABS: BILIRUBIN,URINE SMALL (NEG); CLARITY,URINE CLEAR; COLOR,URINE YELLOW; NITRITE,URINE NEGATIVE (NEG); PROTEIN,URINE NEGATIVE (NEG-TRACE)
[2020-11-02 14:51] LABS: BACTERIA,URINE 0 /HPF (0-FEW); RBC,URINE 0 /HPF (0-2); WBC,URINE OCC /HPF (0-4)
[2020-11-02 14:52] LABS: HYALINE CASTS, URINE FEW /HPF
--- NOTE | 2020-11-02 14:57 | RAD ---
EXAM: CT head and cervical spine without contrast INDICATION: Fall yesterday, loss of balance, abnormal gait today COMPARISON: CT head 04/28/2019. CT head and C-spine 10/06/2017 TECHNIQUE: Axial CT imaging through the head and cervical spine without intravenous contrast. Sagitta l and coronal reformats were obtained of the cervical spine. One or more of the following individualized dose reduction techniques were utilized for this examinat ion: 1. Automated exposure control 2. Adjustment of the mA and/or kV according to patient size 3. Use of iterative reconstruction technique. FINDINGS: CT head: The ventricles and sulci are mildly enlarged, reflecting age-related volume loss. There is a mild bur den of periventricular and deep hypoattenuating white matter lesions. Brian-white matter differentiat ion is maintained. There is no intracranial hemorrhage, acute infarct, or mass lesion. Basal cisterns are clear. The calvarium is intact. The visualized sinuses and mastoid air cells are clear. Globes a nd orbits are intact.. CT cervical spine: No acute fracture. Alignment is normal. Chronic vertebral body height loss at C5, C6, and C7 is uncha nged. There is mild disc space narrowing. The craniocervical junction and atlantoaxial interval are m aintained. Mild facet arthrosis. Prevertebral soft tissues is normal. IMPRESSION: No acute intracranial abnormality or acute osseous abnormality of the cervical spine. Electronically signed by: Lyly Ag MD (11/02/2020 2:55 PM) [id number]
--- NOTE | 2020-11-02 15:01 | RAD ---
EXAM: CT lumbar spine without contrast INDICATION: Fall, loss of balance, abnormal gait today COMPARISON: CT abdomen pelvis 07/28/2018 TECHNIQUE: Axial CT imaging through lumbar spine without intravenous contrast. Sagittal and coronal r eformats were obtained. One or more of the following individualized dose reduction techniques were utilized for this examinat ion: 1. Automated exposure control 2. Adjustment of the mA and/or kV according to patient size 3. Use of iterative reconstruction technique. FINDINGS: There 5 nonrib-bearing lumbar vertebral bodies. No acute fracture. Alignment is normal. Unchanged mil d disc space narrowing with anterior osteophytes at multiple levels. No significant canal or foramina l narrowing. Left peripelvic cysts are unchanged. There is calcified atherosclerosis of the abdominal aorta. IMPRESSION: No acute osseous abnormality of the lumbar spine. Electronically signed by: Lyly Ag MD (11/02/2020 2:59 PM) [id number]
--- NOTE | 2020-11-02 15:18 | ED.ADGEN ---
Past Medical History Past Medical History: A-Fib, High Cholesterol, Hypertension, [place], UTI Additional Past Medical Histor: MR, BPH. Past Surgical History: Coronary Bypass Surgery, Pacemaker Smoking Status: Never Smoker Alcohol Use: None Drug Use: None General Adult EDM: Chief Complaint: BACK INJURY HPI: HPI: Patient is a 79 year old [f__sex] who presents with [] Review of Systems: Review of Systems: Constitutional: Denies fever or chills. [] Eyes: Denies change in visual acuity. [] HENT: Denies nasal congestion or sore throat. [] Respiratory: Denies cough or shortness of breath. [] Cardiovascular: Denies chest pain or edema. [] GI: Denies abdominal pain, nausea, vomiting, bloody stools or diarrhea. [] : Denies dysuria. [] Musculoskeletal: Denies back pain or joint pain. [] Integument: Denies rash. [] Neurologic: Denies headache, focal weakness or sensory changes. [] Endocrine: Denies polyuria or polydipsia. [] Lymphatic: Denies swollen glands. [] Psychiatric: Denies depression or anxiety. [] Allergies: Allergies: Allergies Coded Allergies Type Severity Reaction Last Updated Verified No Known Drug Allergies 11/02/20 No Physical Exam: PE: Constitutional: Well developed, well nourished, no acute distress, non-toxic appearance. [] HENT: Normocephalic, atraumatic, bilateral external ears normal, oropharynx moist, no oral exudates, nose normal. [] Eyes: PERRLA, EOMI, conjunctiva normal, no discharge. [] Neck: Normal range of motion, no tenderness, supple, no stridor. [] Cardiovascular:Heart rate regular rhythm, no murmur [] Lungs & Thorax: Bilateral breath sounds clear to auscultation [] Abdomen: Bowel sounds normal, soft, no tenderness, no masses, no pulsatile masses. [] Skin: Warm, dry, no erythema, no rash. [] Back: No tenderness, no CVA tenderness. [] Extremities: No tenderness, no cyanosis, no clubbing, ROM intact, no edema. [] Neurologic: Alert and oriented X 3, normal motor function, normal sensory function, no focal deficits noted. [] Psychologic: Affect normal, judgement normal, mood normal. [] Current Patient Data: Labs: Laboratory Tests Test 11/02/20 14:30 Urine Collection Type Unknown Urine Color Yellow Urine Clarity Clear Urine pH 5.0 (<5.0-8.0) Urine Specific [place] 1.025 (1.000-1.030) Urine Protein Negative mg/dL (NEG-TRACE) Urine Glucose (UA) Negative mg/dL (NEG) Urine Ketones (Stick) Negative mg/dL (NEG) Urine Blood Negative (NEG) Urine Nitrite Negative (NEG) Urine Bilirubin Small (NEG) Urine Urobilinogen Dipstick 1.0 mg/dL (0.2 mg/dL) Urine Leukocyte Esterase Negative (NEG) Urine RBC 0 /HPF (0-2) Urine WBC Occ /HPF (0-4) Urine Squamous Epithelial Cells Mod /LPF Urine Bacteria 0 /HPF (0-FEW) Urine Hyaline Casts Few /HPF Urine Mucus Marked /LPF Vital Signs: Vital Signs Date Time Temp Pulse Resp B/P (MAP) Pulse Ox O2 Delivery O2 Flow Rate FiO2 11/02/20 16:33 71 181/100 (127) 99 Room Air 11/02/20 14:20 99.1 20 99.1 EKG: EKG: [] Heart Score: Risk Factors: Risk Factors: DM, Current or recent (<one month) smoker, HTN, HLP, family history of CAD, obesity. Risk Scores: Score 0 - 3: 2.5% MACE over next 6 weeks - Discharge Home Score 4 - 6: 20.3% MACE over next 6 weeks - Admit for Clinical Observation Score 7 - 10: 72.7% MACE over next 6 weeks - Early Invasive Strategies Radiology/Procedures: Radiology/Procedures: PROCEDURE: CT LUMBAR SPINE WO CONTRAST EXAM: CT lumbar spine without contrast INDICATION: Fall, loss of balance, abnormal gait today COMPARISON: CT abdomen pelvis 07/28/2018 TECHNIQUE: Axial CT imaging through lumbar spine without intravenous contrast. Sagittal and coronal reformats were obtained. One or more of the following individualized dose reduction techniques were util ized for this examination: 1. Automated exposure control 2. Adjustment of the mA and/or kV according to patient size 3. Use of iterative reconstruction technique. FINDINGS: There 5 nonrib-bearing lumbar vertebral bodies. No acute fracture. Alignment is normal. Unchanged mild disc space narrowing with anterior osteophytes at multiple levels. No significant canal or foraminal narrowing. Left peripelvic cysts are unchanged. There is calcified atherosclerosis of the abdominal aorta. IMPRESSION: No acute osseous abnormality of the lumbar spine. PROCEDURE: CT HEAD AND CERVICAL SPINE WO EXAM: CT head and cervical spine without contrast INDICATION: Fall yesterday, loss of balance, abnormal gait today COMPARISON: CT head 04/28/2019. CT head and C-spine 10/06/2017 TECHNIQUE: Axial CT imaging through the head and cervical spine without intravenous contrast. Sagittal and coronal reformats were obtained of the cervical spine. One or more of the following individualized dose reduction techniques were utilized for this examination: 1. Automated exposure control 2. Adjustment of the mA and/or kV according to patient size 3. Use of iterative reconstruction technique. FINDINGS: CT head: The ventricles and sulci are mildly enlarged, reflecting age-related volume loss. There is a mild burden of periventricular and deep hypoattenuating white matter lesions. Brian-white matter differentiation is maintained. There is no intracranial hemorrhage, acute infarct, or mass lesion. Basal cisterns are cl ear. The calvarium is intact. The visualized sinuses and mastoid air cells are clear. Globes and orbits are intact.. CT cervical spine: No acute fracture. Alignment is normal. Chronic vertebral body height loss at C5, C6, and C7 is unchanged. There is mild disc space narrowing. The craniocervical junction and atlantoaxial interval are maintained. Mild facet arthrosis. Prevertebral soft tissues is normal. IMPRESSION: No acute intracranial abnormality or acute osseous abnormality of the cervical spine. PROCEDURE: RIBS RIGHT AND PA CHEST XR RIBS MIN 3 VIEWS RT W/PA CHEST History: Reason: R lateral lower rib pain after fall yesterday / Spl. Instructions: / History: Technique: PA view the chest and 2 additional views of the right ribs. Comparison: None. Findings: No consultation or pleural effusion. Normal heart size. No pneumothorax present left sided pacemaker. Prior median sternotomy. No displaced rib fractures. Impression: 1. No acute cardiopulmonary process. No displaced rib fractures. [] Course & Med Decision Making: Course & Med Decision Making Pertinent Labs and Imaging studies reviewed. (See chart for details) [] Dragon Disclaimer: Dragon Disclaimer: This electronic medical record was generated, in whole or in part, using a voice recognition dictation system. Departure Departure Impression: Primary Impression: Contusion of rib on right side Additional Impressions: Fall from standing Back pain due to injury Disposition: HOME / SELF CARE / HOMELESS Condition: STABLE Referrals: BEAR HERMAN MD (PCP) Patient Instructions: Back Pain, Adult, [id number], Fall Prevention and Home Safety, [id number], Rib Contusion Additional Instructions: Fill the prescriptions and take them as directed. You can take Tylenol or ibuprofen as needed for pain. Recommend application of ice to sore areas as needed for the first 48 hours then ice or heat as needed for comfort. Follow-up with your primary care doctor in the next 1 to 2 days, return to the ER if symptoms worsen or fever develops. Scripts Cyclobenzaprine Hcl (CYCLOBENZAPRINE HCL) 10 Mg Tablet 0.5-1 TAB PO BID PRN for MUSCLE PAIN for 10 Days, #20 TAB 0 Refills Prov: RON MATTHEW APRN 11/02/20 Problem Qualifiers Primary Impression: Contusion of rib on right side Encounter type: initial encounter Qualified Codes: S20.211A - Contusion of right front wall of thorax, initial encounter Additional Impressions: Fall from standing Encounter type: initial encounter Qualified Codes: W19.XXXA - Unspecified fall, initial encounter RON MATTHEW HOST Nov 02, 2020 15:18
--- NOTE | 2020-11-02 15:41 | RAD ---
XR RIBS MIN 3 VIEWS RT W/PA CHEST History: Reason: R lateral lower rib pain after fall yesterday / Spl. Instructions: / History: Technique: PA view the chest and 2 additional views of the right ribs. Comparison: None. Findings: No consultation or pleural effusion. Normal heart size. No pneumothorax present left sided pacemaker. Prior median sternotomy. No displaced rib fractures. Impression: 1. No acute cardiopulmonary process. No displaced rib fractures. Electronically signed by: Sean Ward DO (11/02/2020 3:39 PM) [id number]
[2020-11-02 16:33] VITALS: BP 181/100
[2020-11-02] MEDS ORDERED: CYCL10TA2 PO (16:39)
== END 2020-11-02 17:00 | disposition home or self-care (01) ==
LOC: ER 13:44
DX: S20.211A Contusion of right front wall of thorax, initial encounter (principal); M54.5 Low back pain; R26.9 Unspecified abnormalities of gait and mobility; I48.91 Unspecified atrial fibrillation; E78.00 Pure hypercholesterolemia, unspecified; I10 Essential (primary) hypertension; I25.2 Old myocardial infarction; Z87.440 Personal history of urinary (tract) infections; Z95.1 Presence of aortocoronary bypass graft; Z95.0 Presence of cardiac pacemaker; W18.39XA Other fall on same level, initial encounter; Y93.89 Activity, other specified; Y92.89 Other specified places as the place of occurrence of the external cause; Y99.8 Other external cause status
CPT/HCPCS: 70450; 71101; 72125; 72131; 81001; 99284-25

== ENCOUNTER 2021-07-02 19:44 | Emergency (ER) | payer MEDICARE ==
[~2021-07-02] VITALS: Ht 167.6 cm; Wt 81.0 kg
[~2021-07-02 19:44] MED LIST changes: +CYCL10TA19 PO
--- NOTE | 2021-07-02 20:24 | PHYS DOC ---
Past Medical History Past Medical History: A-Fib, High Cholesterol, Hypertension, MN, UTI Additional Past Medical Histor: MR, BPH. Past Surgical History: Coronary Bypass Surgery, Pacemaker Smoking Status: Never Smoker Alcohol Use: None Drug Use: None General Adult EDM: Chief Complaint: LOWER EXTREMITY SWELLING HPI: HPI: Patient is a 80 year old male who presents with 2 days of bilateral lower leg peripheral edema. Patient's niece is his DPOA. He states that June 24, 2021 was diagnosed with a DVT in his left lower extremity and was hospitalized at [facility] for 2 days. Patient's niece states that they were given Lovenox in the hospital. She states that they also did an echo on his heart and she did not get any home care or education on the things that they did. Niece states that she did not take him back there because he did not get good care. She states the patient is yelling out in pain because his feet and legs have sharp shooting pains, increased redness and swelling. Patient is on Eliquis. He is rating his pain a 7 out of 10. Patient has a history of altered mental status, high cholesterol, enlarged prostate, tremors, falls, MN, pacem thor, MR, cardiac bypass and A. fib. Review of Systems: Review of Systems: Constitutional: Denies fever or chills. [] Eyes: Denies change in visual acuity. [] HENT: Denies nasal congestion or sore throat. [] Respiratory: Denies cough or shortness of breath. [] Cardiovascular: Denies chest pain or +edema. [] GI: Denies abdominal pain, nausea, vomiting, bloody stools or diarrhea. [] : Denies dysuria. [] Musculoskeletal: Denies back pain or joint pain. + Bilateral lower leg pain [] Integument: Denies rash. + Bilateral lower leg redness [] Neurologic: Denies headache, focal weakness or sensory changes. [] Endocrine: Denies polyuria or polydipsia. [] Lymphatic: Denies swollen glands. [] Psychiatric: Denies depression or anxiety. [] Heart Score: C/O Chest Pain: No Allergies: Allergies: Allergies Coded Allergies Type Severity Reaction Last Updated Verified No Known Drug Allergies 11/02/20 No Physical Exam: PE: Constitutional: Well developed, well nourished, no acute distress, non-toxic appearance. [] HENT: Normocephalic, atraumatic, bilateral external ears normal, oropharynx moist, no oral exudates, nose normal. [] Eyes: PERRLA, EOMI, conjunctiva normal, no discharge. [] Neck: Normal range of motion, no tenderness, supple, no stridor. [] Cardiovascular:Heart rate regular rhythm, no murmur [] Lungs & Thorax: Bilateral breath sounds clear to auscultation [] Abdomen: Bowel sounds normal, soft, no tenderness, no masses, no pulsatile masses. [] Skin: Warm, dry, bilateral lower leg lorenz down through foot erythema, no rash. Bilateral feet appear dusky [] Back: No tenderness, no CVA tenderness. [] Extremities: Lateral feet and lower legs tenderness, no cyanosis, no clubbing, ROM intact, lower leg 3+ edema. [] Neurologic: Alert and oriented X 3, normal motor function, normal sensory function, no focal deficits noted. [] Psychologic: Affect normal, judgement normal, mood normal. [] EKG: EKG: [] Radiology/Procedures: Radiology/Procedures: [] Impression: [facility] [address] [place], [place] [id number] IMAGING REPORT Signed PATIENT: ALFIE NIX ACCOUNT: [id number] : 1940 LOCATION: ER AGE: 80 SEX: M EXAM STATUS: REG ER ORD. PHYSICIAN: ATA ROBERTS APRN REASON: swelling, pain, dusky in color [place] aware @2048 PROCEDURE: VENOUS LOWER EXT BILATERAL US BILATERAL LOWEREXTREMITY VENOUS DOPPLER 07/02/2021 9:46 PM Clinical Information: Pain, dusky color of extremities. Comparison: None. Technique: Multiple grayscale, color Doppler, and spectral Doppler sonographic images of the lower extremity venous structures were obtained. Findings: The right common femoral, femoral, and popliteal veins exhibit normal compr ession, respiratory phasicity, and augmentation. No intraluminal thrombi are identified. Color Doppler flow is demonstrated in the right posterior tibial veins. The left common femoral, femoral, and popliteal veins exhibit normal compression, respiratory phasicity, and augmentation. No intraluminal thrombi are identified. Color Doppler flow is demonstrated in the left posterior tibial veins. Greater saphenous veins are patent at the saphenofemoral junction. Impression: 1. No evidence of deep venous thrombosis. Electronically signed by: Teddy Chau MD (07/02/2021 11:20 PM) [facility] DICTATED and SIGNED BY: TEDDY CHAU MD DATE: 07/02/[id number] 0 [facility] [address] [place] [address] IMAGING REPORT Signed PATIENT: ALFIE NIX ACCOUNT: [id number] : 1940 LOCATION: ER AGE: 80 SEX: M EXAM STATUS: REG ER ORD. PHYSICIAN: ATA ROBERTS APRN REASON: swelling, pain, dusky in color PROCEDURE: DUPLEX LOWER EXTREMITY BILAT Realtime grayscale and color Duplex Doppler ultrasonography of the bilateral lower extremities was performed. History: swelling, pain, dusky in color Comparison: None. Findings: Right: Common femoral artery peak systolic velocity measures 115 cm/s. Profunda femoris artery peak systolic velocity measures 84 cm/s. Proximal superficial femoral artery peak systolic velocity measures 107 cm/s. Mid superficial femoral artery peak systolic velocity measures 107 cm/s. Popliteal artery peak systolic velocity measures 55 cm/s. Posterior tibial artery peak systolic velocity measures 112 cm/s. Dorsalis pedis artery peak systolic velocity measures 53 cm/s. Left: Common femoral artery peak systolic velocity measures 113 cm/s. Mid superficial femoral artery peak systolic velocity measures 114 cm/s. Popliteal artery peak systolic velocity measures 80 cm/s. Posterior tibial artery peak systolic velocity measures 57 cm/s. Dorsalis pedis artery peak systolic velocity measures 39 cm/s. Impression: Flow is detected throughout the bilateral lower extremities. No evidence of high-grade stenosis. Electronically signed by: Kayley Eastman MD (07/02/2021 11:30 PM) [facility] DICTATED and SIGNED BY: KAYLEY EASTMAN MD DATE: 07/02/[id number] 0 Course & Med Decision Making: Course & Med Decision Making Pertinent Labs and Imaging studies reviewed. (See chart for details) See HPI. Alert in oriented x3. Patient is very nervous and he states that she gave him one of his Ativan prior to arrival. Speaks in full clear sentences. Bilateral lower legs and into feet are very painful with palpation. 3+ swelling. Is hard to find a pulse due to the swelling. Appear dusky in color. Cap refill around 3 seconds. Sensations intact. Able to move from wheelchair to bed but painful to stand on his feet. There is some slight redness to the bilateral lower legs. No wounds. Denies chest pain, shortness of breath, abdominal pain, fever, nausea, vomiting, diarrhea, recent fall, back pain, numbness or tingling. Patient is negative for DVT or arterial thrombus. I had Dr. Joya take a look at his legs also. Patient likely has some venous stasis. Patient follow-up with his primary care provider. Patient and niece are happy with this care plan. [] Patriciaon Disclaimer: Salo Disclaimer: This electronic medical record was generated, in whole or in part, using a voice recognition dictation system. Departure Departure Impression: Primary Impression: Peripheral edema Disposition: HOME / SELF CARE / HOMELESS Admitting Physician: MAISHA Condition: STABLE Referrals: BEAR HERMAN MD (PCP) Patient Instructions: Venous Stasis and Chronic Venous Insufficiency Additional Instructions: Follow-up with primary care provider soon as possible. Keep your feet elevated as much as possible. Use compression stockings. Continue taking all your medications as prescribed. If you begin having numbness in your feet or severe pain return emergency room. ATA ROBERTS MANAGER HEMATOLOGY Jul 02, 2021 20:24
[2021-07-02 20:37] LABS: BASO % 1 % (0-3); EOS # 0.2 x10^3/uL (0.0-0.7); EOS % 3 % (0-3); HEMATOCRIT 42.2 % (39.0-53.0); HEMOGLOBIN 13.6 g/dL (13.0-17.5); LYMPH # 1.8 x10^3/uL (1.0-4.8); LYMPH % 32 % (24-48); MEAN CORPUSCULAR HEMOGLOBIN 32 pg (25-35); MEAN CORPUSCULAR HGB CONC 32 g/dL (31-37); MEAN CORPUSCULAR VOLUME 98 fL (79-100); MONO # 0.5 x10^3/uL (0.0-1.1); MONO % 9 % (0-9); NEUT # 3.2 x10^3/uL (1.8-7.7); NEUT % 55 % (31-73); PLATELET COUNT 111 x10^3/uL (140-400); RED BLOOD COUNT 4.32 x10^6/uL (4.30-5.70); WHITE BLOOD COUNT 5.7 x10^3/uL (4.0-11.0)
[2021-07-02] MEDS ORDERED: fentaNYL PF VIAL 100 MCG/2 ML VIAL IVP ONE (20:45)
[2021-07-02 20:46] LABS: PROTHROMBIN TIME PATIENT 15.3 SEC (11.7-14.0)
[2021-07-02 20:49] LABS: GFR 71.7
[2021-07-02 20:54] LABS: ALBUMIN 3.4 g/dL (3.4-5.0); ALBUMIN/GLOBULIN RATIO 1.1 (1.0-1.7); C-REACTIVE PROTEIN 0.9 mg/L (0-3.3); TOTAL BILIRUBIN 0.5 mg/dL (0.2-1.0); TOTAL PROTEIN 6.6 g/dL (6.4-8.2)
--- NOTE | 2021-07-02 23:22 | RAD ---
US BILATERAL LOWEREXTREMITY VENOUS DOPPLER 07/02/2021 9:46 PM Clinical Information: Pain, dusky color of extremities. Comparison: None. Technique: Multiple grayscale, color Doppler, and spectral Doppler sonographic images of the lower ex tremity venous structures were obtained. Findings: The right common femoral, femoral, and popliteal veins exhibit normal compression, respiratory phasic ity, and augmentation. No intraluminal thrombi are identified. Color Doppler flow is demonstrated in the right posterior tibial veins. The left common femoral, femoral, and popliteal veins exhibit normal compression, respiratory phasici ty, and augmentation. No intraluminal thrombi are identified. Color Doppler flow is demonstrated in t he left posterior tibial veins. Greater saphenous veins are patent at the saphenofemoral junction. Impression: 1. No evidence of deep venous thrombosis. Electronically signed by: Alysha Marie MD (07/02/2021 11:20 PM) [facility]
--- NOTE | 2021-07-02 23:32 | RAD ---
Realtime grayscale and color Duplex Doppler ultrasonography of the bilateral lower extremities was pe rformed. History: swelling, pain, dusky in color Comparison: None. Findings: Right: Common femoral artery peak systolic velocity measures 115 cm/s. Profunda femoris artery peak systolic velocity measures 84 cm/s. Proximal superficial femoral artery peak systolic velocity measures 107 cm/s. Mid superficial femoral artery peak systolic velocity measures 107 cm/s. Popliteal artery peak systolic velocity measures 55 cm/s. Posterior tibial artery peak systolic velocity measures 112 cm/s. Dorsalis pedis artery peak systolic velocity measures 53 cm/s. Left: Common femoral artery peak systolic velocity measures 113 cm/s. Mid superficial femoral artery peak systolic velocity measures 114 cm/s. Popliteal artery peak systolic velocity measures 80 cm/s. Posterior tibial artery peak systolic velocity measures 57 cm/s. Dorsalis pedis artery peak systolic velocity measures 39 cm/s. Impression: Flow is detected throughout the bilateral lower extremities. No evidence of high-grade stenosis. Electronically signed by: Parviz Eastman MD (07/02/2021 11:30 PM) [facility]
[2021-07-03 00:36] VITALS: BP 168/72
== END 2021-07-03 01:10 | disposition home or self-care (01) ==
LOC: ER 19:44
DX: R60.0 Localized edema (principal); M79.662 Pain in left lower leg; M79.661 Pain in right lower leg; I48.91 Unspecified atrial fibrillation; E78.00 Pure hypercholesterolemia, unspecified; I10 Essential (primary) hypertension; I25.2 Old myocardial infarction; Z87.440 Personal history of urinary (tract) infections; Z95.0 Presence of cardiac pacemaker; Z95.1 Presence of aortocoronary bypass graft; Z86.718 Personal history of other venous thrombosis and embolism; Z79.01 Long term (current) use of anticoagulants
CPT/HCPCS: 36415; 80053; 83880; 85025; 85610; 85651; 85730; 86140; 93925; 93970; 96374; 99284; J3010; 99285

== ENCOUNTER 2021-07-28 19:53 | Emergency (ER) | payer MEDICARE ==
[~2021-07-28] VITALS: Ht 170.2 cm; Wt 82.7 kg
[2021-07-28] MEDS ORDERED: IV NORMAL SALINE 1000ML BAG 1,000 ML IV SCH (20:15)
--- NOTE | 2021-07-28 20:31 | RAD ---
Exam: Chest one view INDICATION: Weakness TECHNIQUE: Frontal view of the chest Comparisons: 11/02/2020 FINDINGS: Sternotomy wires are noted. Pacer with leads terminating the right heart. The cardiomediastinal silhouette and pulmonary vessels are within normal limits. The lung and pleural spaces are clear. IMPRESSION: No acute pulmonary process. Electronically signed by: Anjum Burger MD (07/28/2021 8:28 PM) [facility]
[2021-07-28 20:49] LABS: BASO % 0 % (0-3); EOS % 1 % (0-3); HEMATOCRIT 38.7 % (39.0-53.0); HEMOGLOBIN 12.5 g/dL (13.0-17.5); LYMPH # 0.9 x10^3/uL (1.0-4.8); LYMPH % 19 % (24-48); MEAN CORPUSCULAR HEMOGLOBIN 31 pg (25-35); MEAN CORPUSCULAR HGB CONC 32 g/dL (31-37); MEAN CORPUSCULAR VOLUME 97 fL (79-100); MONO # 0.7 x10^3/uL (0.0-1.1); MONO % 15 % (0-9); NEUT # 3.1 x10^3/uL (1.8-7.7); NEUT % 65 % (31-73); PLATELET COUNT 77 x10^3/uL (140-400); RED BLOOD COUNT 3.99 x10^6/uL (4.30-5.70); RED CELL DISTRIBUTION WIDTH 15.2 % (11.5-14.5); WHITE BLOOD COUNT 4.8 x10^3/uL (4.0-11.0)
[2021-07-28 21:03] LABS: CALCIUM 9.4 mg/dL (8.5-10.1); CREATININE 1.2 mg/dL (0.7-1.3); GFR 58.1; POTASSIUM 4.9 mmol/L (3.5-5.1)
--- NOTE | 2021-07-28 21:07 | RAD ---
STUDY: CT head without contrast INDICATION: Weakness. COMPARISON: 11/02/2020 TECHNIQUE: Axial CT imaging through the head without the use of intravenous contrast. Sagittal and co dwayne reformats were obtained. One or more of the following individualized dose reduction techniques were utilized for this examinat ion: 1. Automated exposure control 2. Adjustment of the mA and/or kV according to patient size 3. Use of iterative reconstruction technique. FINDINGS: No acute intracranial hemorrhage. Carroll-white matter differentiation is maintained. No localized mass effect, midline shift or hydrocephalus. Parenchymal volume loss and intracranial calcific atherosclerosis. Unchanged calvarium. IMPRESSION: No acute intracranial abnormality by CT. No significant change from the 11/02/2020 comparison. Electronically signed by: MAYRA VIDALES MD (07/28/2021 9:04 PM) [facility]
[2021-07-28 21:11] LABS: TOTAL BILIRUBIN 0.6 mg/dL (0.2-1.0); TOTAL PROTEIN 6.1 g/dL (6.4-8.2)
[2021-07-28 21:52] LABS: BILIRUBIN,URINE NEGATIVE (NEG); CLARITY,URINE CLEAR; COLOR,URINE YELLOW; NITRITE,URINE NEGATIVE (NEG); PROTEIN,URINE NEGATIVE (NEG-TRACE)
[2021-07-28 21:57] LABS: BACTERIA,URINE 0 /HPF (0-FEW); RBC,URINE 0 /HPF (0-2); WBC,URINE 0 /HPF (0-4)
[2021-07-28 21:58] LABS: BARBITURATES NEG (NEG); BENZODIAZEPINES NEG (NEG); CANNABINOIDS NEG (NEG); COCAINE NEG (NEG); METHADONE NEG (NEG); OPIATES NEG (NEG); PHENCYCLIDINE NEG (NEG)
[2021-07-28 22:01] LABS: AMPHETAMINE/METHAMPHETAMINE NEG (NEG)
--- NOTE | 2021-07-28 22:45 | PHYS DOC ---
Past Medical History Past Medical History: A-Fib, High Cholesterol, Hypertension, [place], UTI Additional Past Medical Histor: MR, BPH. Past Surgical History: Coronary Bypass Surgery, Pacemaker Additional Past Surgical Histo: AV PACED Smoking Status: Never Smoker Alcohol Use: None Drug Use: None General Adult EDM: Chief Complaint: WEAKNESS/GENERALIZED HPI: HPI: 80-year-old male past medical history of CAD, A. fib on Eliquis, hypertension hyperlipidemia, presents to the ED with his niece, (patient consents to his/her/their knowledge and involvement in pts' medical care), with complaints of inability to get out of his chair earlier today due to lower extremity swelling. 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 Has a h/o being on lasix but is currently not prescribed it. Reports exposure to someone who tested positive for covid. Has had his covid vaccination. C/o a dry cough and fatigue. Review of Systems: Review of Systems: Constitutional: Denies fever or chills. [] Eyes: Denies change in visual acuity. [] HENT: Denies nasal congestion or sore throat. [] Respiratory: Denies hemoptysis or shortness of breath. [] Cardiovascular: Denies chest pain or edema. [] GI: Denies abdominal pain, nausea, vomiting, bloody stools or diarrhea. [] : Denies dysuria or incontinence Musculoskeletal: Denies back pain or joint pain. [] Integument: Denies rash pr diaphoresis Neurologic: Denies headache or neck stiffness Endocrine: Denies polyuria or polydipsia. [] Lymphatic: Denies swollen glands. [] Psychiatric: Denies depression or anxiety. [] Heart Score: C/O Chest Pain: No Risk Factors: Risk Factors: DM, Current or recent (<one month) smoker, HTN, HLP, family history of CAD, obesity. Risk Scores: Score 0 - 3: 2.5% MACE over next 6 weeks - Discharge Home Score 4 - 6: 20.3% MACE over next 6 weeks - Admit for Clinical Observation Score 7 - 10: 72.7% MACE over next 6 weeks - Early Invasive Strategies Current Medications: Current Medications Medications (Trade) Dose Ordered Sig/Kael Start Time Stop Time Status Last Admin Dose Admin Sodium Chloride 1,000 ml @ 1,000 mls/hr Q1H 07/28/21 20:15 07/28/21 21:14 DC 07/28/21 20:44 1,000 MLS/HR Allergies: Allergies: Allergies Coded Allergies Type Severity Reaction Last Updated Verified No Known Drug Allergies 11/02/20 No Physical Exam: PE: Constitutional: Well developed, well nourished, no acute distress, non-toxic appearance. HENT: Normocephalic, atraumatic, Eyes: EOMI, conjunctiva normal, no discharge. Neck: Normal range of motion, supple, no JVD or nuchal rigidity Cardiovascular: S1/2 present, regular rhythm Lungs & Thorax: Speaking in full sentences, bilateral equal chest rise, no tachypnea or increased work of breathing, dry cough present in ed Abdomen: soft, no tenderness, Skin: Warm, dry, no erythema, no rash. [] Extremities: No tenderness, no cyanosis, bilateral equal lower extremity edema Neurologic: Alert and oriented X 3, normal motor function, normal sensory function, no focal deficits noted. [] Psychologic: Affect normal, judgement normal, mood normal. [] Current Patient Data: Labs: Laboratory Tests Test 07/28/21 20:31 07/28/21 21:45 White Blood Count 4.8 x10^3/uL (4.0-11.0) Red Blood Count 3.99 x10^6/uL (4.30-5.70) L Hemoglobin 12.5 g/dL (13.0-17.5) L Hematocrit 38.7 % (39.0-53.0) L Mean Corpuscular Volume 97 fL (79-100) Mean Corpuscular Hemoglobin 31 pg (25-35) Mean Corpuscular Hemoglobin Concent 32 g/dL (31-37) Red Cell Distribution Width 15.2 % (11.5-14.5) H Platelet Count 77 x10^3/uL (140-400) L Neutrophils (%) (Auto) 65 % (31-73) Lymphocytes (%) (Auto) 19 % (24-48) L Monocytes (%) (Auto) 15 % (0-9) H Eosinophils (%) (Auto) 1 % (0-3) Basophils (%) (Auto) 0 % (0-3) Neutrophils # (Auto) 3.1 x10^3/uL (1.8-7.7) Lymphocytes # (Auto) 0.9 x10^3/uL (1.0-4.8) L Monocytes # (Auto) 0.7 x10^3/uL (0.0-1.1) Eosinophils # (Auto) 0.0 x10^3/uL (0.0-0.7) Basophils # (Auto) 0.0 x10^3/uL (0.0-0.2) Sodium Level 137 mmol/L (136-145) Potassium Level 4.9 mmol/L (3.5-5.1) Chloride Level 106 mmol/L (98-107) Carbon Dioxide Level 29 mmol/L (21-32) Anion Gap 2 (6-14) L Blood Urea Nitrogen 17 mg/dL (8-26) Creatinine 1.2 mg/dL (0.7-1.3) Estimated GFR (Cockcroft-Gault) 58.1 BUN/Creatinine Ratio 14 (6-20) Glucose Level 76 mg/dL (70-99) Calcium Level 9.4 mg/dL (8.5-10.1) Magnesium Level 2.0 mg/dL (1.8-2.4) Total Bilirubin 0.6 mg/dL (0.2-1.0) Aspartate Amino Transferase (AST) 20 U/L (15-37) Alanine Aminotransferase (ALT) 25 U/L (16-63) Alkaline Phosphatase 118 U/L (46-116) H Troponin I High Sensitivity 8 ng/L (4-75) OL-Rqz-A-Type Natriuretic Peptide 698 pg/mL (0-449) H Total Protein 6.1 g/dL (6.4-8.2) L Albumin 3.0 g/dL (3.4-5.0) L Albumin/Globulin Ratio 1.0 (1.0-1.7) Lipase 25 U/L (73-393) L Urine Collection Type Unknown Urine Color Yellow Urine Clarity Clear Urine pH 5.0 (<5.0-8.0) Urine Specific Flushing 1.015 (1.000-1.030) Urine Protein Negative mg/dL (NEG-TRACE) Urine Glucose (UA) Negative mg/dL (NEG) Urine Ketones (Stick) Negative mg/dL (NEG) Urine Blood Negative (NEG) Urine Nitrite Negative (NEG) Urine Bilirubin Negative (NEG) Urine Urobilinogen Dipstick 1.0 mg/dL (0.2 mg/dL) Urine Leukocyte Esterase Negative (NEG) Urine RBC 0 /HPF (0-2) Urine WBC 0 /HPF (0-4) Urine Squamous Epithelial Cells Mod /LPF Urine Bacteria 0 /HPF (0-FEW) Urine Mucus Mod /LPF Urine Opiates Screen Neg (NEG) Urine Methadone Screen Neg (NEG) Urine Barbiturates Neg (NEG) Urine Phencyclidine Screen Neg (NEG) Urine Amphetamine/Methamphetamine Neg (NEG) Urine Benzodiazepines Screen Neg (NEG) Urine Cocaine Screen Neg (NEG) Urine Cannabinoids Screen Neg (NEG) Urine Ethyl Alcohol Neg (NEG) Laboratory Tests 07/28/21 20:31 Laboratory Tests 07/28/21 20:31 Vital Signs: Vital Signs Date Time Temp Pulse Resp B/P (MAP) Pulse Ox O2 Delivery O2 Flow Rate FiO2 07/28/21 22:31 78 33 141/64 (89) 96 Room Air 07/28/21 20:06 99.0 99.0 EKG: EKG: Irregular rhythm 69 bpm, left axis deviation, QTC 465, ABC present, U wave inversion lead III, no ST elevation ST depression Radiology/Procedures: Radiology/Procedures: IMAGING REPORT Signed PATIENT: ALFIE NIX ACCOUNT: [id number] : 1940 LOCATION: ER AGE: 80 SEX: M EXAM STATUS: PRE ER ORD. PHYSICIAN: ELISA GARNICA DO REASON: weakness PROCEDURE: CT HEAD WO CONTRAST STUDY: CT head without contrast INDICATION: Weakness. COMPARISON: 11/02/2020 TECHNIQUE: Axial CT imaging through the head without the use of intravenous contrast. Sagittal and coronal reformats were obtained. One or more of the following individualized dose reduction techniques were utilized for this examination: 1. Automated exposure control 2. Adjustment of the mA and/or kV according to patient size 3. Use of iterative reconstruction technique. FINDINGS: No acute intracranial hemorrhage. Carroll-white matter differentiation is maintained. No localized mass effect, midline shift or hydrocephalus. Parenchymal volume loss and intracranial calcific atherosclerosis. Unchanged calvarium. IMPRESSION: No acute intracranial abnormality by CT. No significant change from the 11/02/2020 comparison. Electronically signed by: MAYRA VIDALES MD (07/28/2021 9:04 PM) [facility] DICTATED and SIGNED BY: MAYRA VIDALES MD DATE: 07/28/[id number] 0 IMAGING REPORT Signed PATIENT: ALFIE NIX ACCOUNT: [id number] : 1940 LOCATION: ER AGE: 80 SEX: M EXAM STATUS: PRE ER ORD. PHYSICIAN: ELISA GARNICA DO REASON: weakness PROCEDURE: PORTABLE CHEST 1V Exam: Chest one view INDICATION: Weakness TECHNIQUE: Frontal view of the chest Comparisons: 11/02/2020 FINDINGS: Sternotomy wires are noted. Pacer with leads terminating the right heart. The cardiomediastinal silhouette and pulmonary vessels are within normal limits. The lung and pleural spaces are clear. IMPRESSION: No acute pulmonary process. Electronically signed by: Anjum Sullivan MD (07/28/2021 8:28 PM) [facility] DICTATED and SIGNED BY: ANJUM SULLIVAN MD DATE: 07/28/[id number] 0 IMAGING REPORT Signed PATIENT: ALFIE NIX ACCOUNT: [id number] : 1940 LOCATION: ER AGE: 80 SEX: M EXAM STATUS: REG ER ORD. PHYSICIAN: ELISA GARNICA DO REASON: leg swelling PROCEDURE: VENOUS LOWER EXT BILATERAL Examination: Bilateral venous Doppler Indication: Leg swelling Technique: Ultrasound evaluation of the bilateral lower extremities was performed from the groin to the upper calf with thomas scale, spectral and color doppler evaluation. Comparison: None Findings: There is normal venous flow and compressibility of bilateral common femoral veins, femoral veins, popliteal veins, and visualized proximal calf veins. Impression: No evidence for deep vein thrombosis of bilateral lower extremities from the level of the calf veins to the groins. Electronically signed by: Keenan Anderson MD (07/28/2021 11:01 PM) [facility] DICTATED and SIGNED BY: KEENAN ANDERSON MD DATE: 07/28/21 [id number] 0 Course & Med Decision Making: Course & Med Decision Making Pertinent Labs and Imaging studies reviewed. (See chart for details) COVID-19 CRITERIA: The patient was evaluated during the global COVID-19 pandemic, and that diagnosis was suspected/considered upon their initial presentation. Their evaluation, treatment and testing was consistent with current guidelines for patients who present with complaints or symptoms that may be related to COVID-19. Concern for lower extremity edema with no DVT on ultrasound. Patient with no chest pain, back pain, dyspnea or hemoptysis. Pt is positive for covid. CXR with no edema. Patient not requiring supplemental oxygen. Patient with no tachycardia or unilateral leg swelling. PE on differential but low suspicion given patient's history, physical exam and complaints. IV Lasix given in the ED recommended prompt PMD follow-up to consider daily Lasix. Will discharge home with strict ED return precautions were given for chest pain, back pain, increased work of breathing, hemoptysis or neurologic deficits. Encouraged urgent outpatient follow-up with PMD for reevaluation. Life-threatening processes were considered but are low suspicion at this time, given history, physical exam and ED workup. Pt was educated on all prescription medications and adverse effects. All patient's questions were answered and pt was stable at time of discharge. Life/limb-threatening differential includes but is not limited to, trauma (fracture, dislocation, laceration, compartment syndrome, tendon or ligament injury), neurovascular injury or deficitcva/tia, infection (osteomyelitis, abscess, cellulitis, septic arthritis, necrotizing fasciitis), deep vein thrombosis, renal/cardiac/liver disease, medication adverse effect, lymphedema/anasarca, vascular insufficiency or malignancy, I have spoken with the patient and/or caregivers. I explained the patient's condition, diagnoses and treatment plan based on the information available to me at this time. I have answered the patient and/or caregiver's questions and addressed any concerns. The patient and/or caregivers have a good understanding of patient's diagnosis, condition and treatment plan as can be expected at this point. Vital signs have been stable. Patient's condition is stable and appropriate for discharge from the emergency department. Patient will pursue further outpatient evaluation with primary care physician or other designated or consulting physician as outlined in the discharge instructi ons. The patient and/or caregivers are agreeable to this plan of care and follow-up instructions have been explained in detail. The patient and/or caregivers have received these instructions in written form and have expressed an understanding of the discharge instructions. The patient and/or caregivers are aware that any significant change of condition or worsening of symptoms should prompt immediate return to this or the closest emergency department or call to 911. Salo Disclaimer: Salo Disclaimer: This electronic medical record was generated, in whole or in part, using a voice recognition dictation system. Departure Departure Impression: Primary Impression: Peripheral edema Additional Impression: COVID-19 Disposition: 01 HOME / SELF CARE / HOMELESS Condition: STABLE Referrals: BEAR HERMAN MD (PCP) Follow-up with your primary care physician in 24 to 48 hours-consider lasix OR FOLLOW UP WITH FAMILY MEDICINE: [address], [address] [place] [address] Patient Instructions: Peripheral Edema Additional Instructions: Return to ED immediately if your oxygen level drops below 90% (purchase a pulse oximetry at a medical supply store), difficulties breathing including rapid breathing or increased work of breathing (skin sucking under ribs), chest pain or stroke-like symptoms (facial droop, speech changes, arm/leg weakness). You have been tested for or diagnosed with COVID-19. It is an infection caused by a new type of coronavirus. COVID-19 will cause cold-like or mild flu symptoms in most. It can cause more severe symptoms like problems breathing in some. There is no treatment for COVID-19. The body will clear the infection over time. Self-care will help to ease discomfort. Steps to Take: Self-Care Rest as needed. Healthy habits may help you feel better. Steps include: Choose healthy foods including fruits and vegetables. Drink water throughout the day. Get plenty of sleep each night. If you smoke, try to quit. It may ease breathing. Avoid alcohol. Keep Others Healthy The virus can spread to others. Droplets are released every time you sneeze or cough. The droplets can get into the mouth, nose, or eyes of people near you and lead to infection. To lower the chances of spreading COVID-19 to others: Stay at home until your doctor has said it is safe to leave. If you tested positive this will mean staying isolated until both of the following are true: At least 7 days have passed since the start of illness. You are free of fever for at least 72 hours without the use of medicine. During this time: - Avoid public areas, events, or transportation. Do not return to work or school until your doctor has said it is safe to do so. - Call ahead if you need to go to a medical center. Let them know you may have COVID-19. It will help them guide you where to go. They may also ask you to wear a facemask when you come to the office. - If you call for emergency medical services, let them know you may have COVID- 19. While at home: - Try to avoid close contact with others. Stay about 6 feet away. - If possible, spend most of your time in a separate room from others. - Use a face mask if you will be in close contact with others such as sharing a room or vehicle. - Have someone wipe down common surfaces in the home. Use household fraud manager every day on areas like doorknobs, counters, or sinks. - Cough or sneeze into a tissue. Throw the tissue away right after use. If a tissue is not available, cough or sneeze into your elbow. - Wash your hands often. Wash them after sneezing or coughing. Use soap and water and wash for at least 20 seconds. Alcohol based hand rug cleaner helper can be used if soap and water is not available. - Do not prepare food for others. Avoid sharing personal items like forks, spoons, or toothbrushes. - Avoid close contact with pets while you are sick. There is no evidence of the virus passing to pets. This is a safety step until more is known about this virus. Isolation can be frustrating. Social interaction can help. Keep in touch with friends and family through phone and tech options. You can still interact with others in your home, just keep a safe distance of about 6 feet. Follow-up: Your doctors office will check in with you to see if there are any changes in your health. You may be asked to keep track of symptoms to share with them. They will also let you know when you are clear to be in public again. Problems to Look Out For: Contact your doctor if your recovery is not going as you expect. Get emergency care if you have problems such as: - Trouble breathing - Nonstop chest pain or pressure - Changes in awareness, confusion, or problems waking - Lips or face have bluish color - Worsening of symptoms If you think you have an emergency, call for emergency medical services right away. As taken from [facility],ELISA Alejandro DO Jul 28, 2021 22:44
--- NOTE | 2021-07-28 23:03 | RAD ---
Examination: Bilateral venous Doppler Indication: Leg swelling Technique: Ultrasound evaluation of the bilateral lower extremities was performed from the groin to t he upper calf with thomas scale, spectral and color doppler evaluation. Comparison: None Findings: There is normal venous flow and compressibility of bilateral common femoral veins, femoral veins, popliteal veins, and visualized proximal calf veins. Impression: No evidence for deep vein thrombosis of bilateral lower extremities from the level of the calf veins to the groins. Electronically signed by: Keenan Smith MD (07/28/2021 11:01 PM) ALEIDA
[2021-07-28] MEDS ORDERED: FUROSEMIDE 40 MG/4 ML VIAL. IVP ONE (23:45)
[2021-07-29 01:15] VITALS: BP 156/67
[2021-07-29 01:41] LABS: INFLUENZA A PATIENT NEGATIVE (NEGATIVE); INFLUENZA B PATIENT NEGATIVE (NEGATIVE)
--- NOTE | 2021-07-29 04:38 | EKG ---
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
--- NOTE | 2021-07-29 04:39 | EKG ---
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
== END 2021-07-29 01:36 | disposition home or self-care (01) ==
LOC: ER 19:53
DX: U07.1 COVID-19 (principal); R60.0 Localized edema; I48.91 Unspecified atrial fibrillation; E78.00 Pure hypercholesterolemia, unspecified; I10 Essential (primary) hypertension; I25.2 Old myocardial infarction; Z95.1 Presence of aortocoronary bypass graft; Z95.0 Presence of cardiac pacemaker
CPT/HCPCS: 36415; 70450; 71045; 80053; 80307; 81001; 83690; 83735; 83880; 84484; 85025; 87426; 87804; 93005; 93970; 96361; 96374; 99284; J1940; J7030